=== PATIENT | female | born 1970 | race Caucasian/White ===

== ENCOUNTER 2021-01-01 09:48 | Outpatient (CLI) | payer OTHER, SELFPAY ==
--- NOTE | ~2021-01-01 | MM_ITS ---
EXAMINATION: MM screening bethanie BI w terry HISTORY: Screening mammogram TECHNIQUE: Craniocaudal and mediolateral oblique 3-D tomosynthesis images were obtained and synthetic 2-D images were generated. CAD analysis was submitted and interpreted. COMPARISON: 11/16/2018 bilateral digital screening mammogram 05/27/2017 bilateral diagnostic digital mammogram and limited left breast ultrasound 02/17/2016, 12/26/2014 bilateral digital screening mammogram BREAST PARENCHYMAL COMPOSITION: The breasts are heterogeneously dense, which may obscure small masses FINDINGS: There is a cluster of grouped microcalcifications in the medial subareolar area of the left breast. Diagnostic left mammogram with magnification views is recommended. Otherwise there is no evidence of suspicious mass, calcification, or architectural distortion to sugg est malignancy in either breast. There has been no other suspicious interval change. IMPRESSION: 1. Cluster grouped microcalcifications in the medial subareolar left breast 2. Diagnostic left mammogram with magnification views is recommended BI-RADS Category 0: Incomplete: Needs additional imaging evaluation. Reviewed, dictated and finalized at location A.
== END 2021-01-01 09:49 | disposition home or self-care (01) ==
PROVIDERS: Visit Provider Nurse Practitioner
DX: Z12.31 Encounter for screening mammogram for malignant neoplasm of breast (principal); R92.8 Other abnormal and inconclusive findings on diagnostic imaging of breast
CPT/HCPCS: 77063; 77067

== ENCOUNTER 2021-01-23 07:35 | Observation (INO) | payer OTHER, SELFPAY ==
[2021-01-23] VITALS (8 sets, daily range): BP systolic 106–130; BP diastolic 48–74; PULSE 81–96; RESP 14–20; TEMP 36.8–37.2; O2SAT 97–100; BMI 21.9
--- NOTE | ~2021-01-23 | CT_ITS ---
EXAMINATION: CT abdomen pelvis w con DATE: 01/23/2021 08:26 INDICATION: Right lower quadrant abdominal pain. Right flank pain. TECHNIQUE: Computed tomography (CT) of the abdomen and pelvis was performed with 100 mL Omnipaque 350 intravenous contrast. Automated exposure control and iterative reconstruction technique were employe d. The dose-length product was 248.54 mGy-cm. COMPARISON: None. FINDINGS: The visualized portions of the lung bases demonstrate mild atelectasis. No pleural effusion . The heart size is normal. No pericardial effusion. The liver, gallbladder, spleen, and adrenal glan ds are normal. Pancreas divisum is noted. The kidneys are normal. The appendix is normal. There are n o dilated loops of bowel. There are scattered diverticula in the colon. In the ascending colon, there is wall thickening with 2.2 x 1.3 cm abscess abutting the bowel wall and fat stranding, consistent w ith diverticulitis. No free intraperitoneal gas. There are no pathologically enlarged lymph nodes. Th ere is no free intraperitoneal fluid. There is moderate lower lumbar spondylosis. IMPRESSION: 1. Diverticulitis of ascending colon with 2.2 x 1.3 cm abscess, which is likely too small for drainag e. Reviewed, dictated and finalized at location D. IMPRESSION: 1. Diverticulitis of ascending colon with 2.2 x 1.3 cm abscess, which is likely too small for drainage.
--- NOTE | 2021-01-23 07:44 | ED.ABDPAIN ---
HPI - Abdominal Pain General Chief Complaint: Abdominal Pain Stated Complaint: right flank pain Time Seen by Provider: 01/23/21 07:40 History of Present Illness HPI narrative: RLQ pain since yesterday. No radiation. Moderate at rest. Worse with any movement. Associated with nausea and cold sweats. This is a new symptoms. She had a transvaginal US done yesterday. Additionally says that she has frequent urination, but this is not new. Related Data Home Medications Medication Instructions Recorded Confirmed alprazolam 0.25 mg PO PRN 01/23/21 01/23/21 sertraline 25 mg PO DAILY 01/23/21 01/23/21 Allergies Allergy/AdvReac Type Severity Reaction Status Date / Time Sulfa (Sulfonamide Allergy Unknown HIVES Verified 01/23/21 07:44 Antibiotics) Review of Systems Review of Systems: All systems reviewed & are unremarkable except as noted in HPI and below Constitutional: Constitutional: Reports fatigue Cardiovascular: Cardiovascular: Denies chest pain Respiratory: Respiratory: Denies dyspnea Genitourinary: Genitourinary: Denies hematuria and Denies dysuria Musculoskeletal: Musculoskeletal: Denies back pain Neurologic: Denies dizziness and Denies weakness [facility] Past Medical History Medical History (Updated 01/23/21 @ 10:55 by Alexandro Antunez MD) Anxiety Social History Social History (Updated 01/23/21 @ 08:14 by Alexandro Antunez MD) Smoking status: Never smoker Gender identity (if verbalized by the patient): Female Exam Const: General: healthy appearing, no acute distress and alert Orientation/consciousness: patient oriented x3 HENMT: Head: normal to inspection Neck: Neck: normal visual inspection Resp: Effort & Inspection: normal respiratory effort Auscultation: clear to auscultation bilaterally, no rales, no rhonchi and no wheezes Cardio: Jugular venous distension: no JVD Rate: regular rate Rhythm: regular rhythm Heart sounds: no murmurs GI: Inspection: non-distended GI Palp: Yes Soft to palpation, Yes Tenderness to palpation present (GI) (McBurny's), No Guarding due to palpation present (GI) and No Rebound tenderness present Other: Pain with right hip flexion Skin: General skin exam: normal color Neuro: General: patient oriented x3 and moves all extremities Speech: normal speech Extrem: General: normal to inspection and no edema Psych: Appearance: well kempt Affect: normal affect Course Vital Signs Vital signs: Vital Signs Temperature 36.8 C 01/23/21 07:39 Pulse Rate 94 01/23/21 07:39 Respiratory Rate 20 01/23/21 07:39 Blood Pressure 130/74 01/23/21 07:39 Pulse Oximetry 100 01/23/21 07:39 Temperature 36.8 C 01/23/21 07:39 Pulse Rate 96 01/23/21 09:51 Respiratory Rate 20 01/23/21 09:51 Blood Pressure 114/70 01/23/21 09:51 Pulse Oximetry 100 01/23/21 09:51 MDM - Abdominal Pain MDM Narrative Medical decision making narrative: Ascending diverticulitis and small abscess. Case discussed with Dr. Camarena. He will admit. Differential Diagnosis Differential diagnosis: Likely acute appendicitis, diverticulitis and pancreatitis Medical Records Attestation: I reviewed the patient's medical records. Lab Data Attestation: I reviewed the patient's lab results. Result diagrams: 01/23/21 07:46 01/23/21 07:46 Labs: Lab Results 01/23/21 01/23/21 01/23/21 Range/Units 07:46 07:46 07:56 WBC 19.0 H (4.5-10.0) K/mm3 RBC 4.18 L (4.2-5.4) M/mm3 Hgb 12.9 (12.0-15.0) g/dL Hct 40.9 (37.0-47.0) % MCV 97.8 (80-100) fl MCH 30.9 (26-34) pg MCHC 31.5 L (32-36) g/dl RDW 12.6 (11.5-14.5) % Plt Count 227 (150-375) k/mm3 MPV 9.5 (7.4-10.4) fl Immature Gran % (Auto) 0.6 H (0-0.5) % Neut % (Auto) 82.6 H (45.5-73.1) % Lymph % (Auto) 7.9 L (18.3-44.2) % Carlton % (Auto) 8.3 (2.6-8.5) % Eos % (Auto) 0.3 (0-4.4) % Baso % (Auto) 0.3 (0.2-1.2) % Lymph
[2021-01-23 07:56] LABS: Basophils Absolute Auto 0.1 K/mm3 (0.0-0.1); Basophils Percent Auto 0.3 % (0.2-1.2); Eosinophils Absolute Auto 0.1 K/mm3 (0-0.3); Eosinophils Percent Auto 0.3 % (0-4.4); Hematocrit 40.9 % (37.0-47.0); Hemoglobin 12.9 g/dL (12.0-15.0); Immature Granulocyte Absolute 0.12 K/mm3 (0.00-0.031); Immature Granulocyte Percent A 0.6 % (0-0.5); Lymphocytes Percent Auto 7.9 % (18.3-44.2); Mean Corpuscular HGB Conc 31.5 g/dl (32-36); Mean Corpuscular Hemoglobin 30.9 pg (26-34); Mean Corpuscular Volume 97.8 fl (80-100); Mean Platelet Volume 9.5 fl (7.4-10.4); Monocytes Absolute Auto 1.6 K/mm3 (0.1-0.6); Monocytes Percent Auto 8.3 % (2.6-8.5); Neutrophils Absolute Auto 15.7 K/mm3 (1.3-6.7); Neutrophils Percent Auto 82.6 % (45.5-73.1); Platelet Count Result 227 k/mm3 (150-375); Red Blood Count 4.18 M/mm3 (4.2-5.4); Red Cell Distribution Width 12.6 % (11.5-14.5)
[2021-01-23 08:08] LABS: Add Urine Microscopic? YES; Appearance Urine Clear (Clear); Bacteria Urine Trace /hpf; Bilirubin Urine Negative (Negative); Blood Urine 2+ (Negative); Color Urine Yellow (Yellow); Glucose Urine UA Negative (Negative); Ketones Urine Negative (Negative); Leukocyte Esterase Ur Negative LEU/UL (Negative); Mucus Urine Rare /lpf; Nitrate Urine Negative (Negative); Protein Urine Negative (Negative); Specific Grav Ur 1.017 (1.001-1.035); Squamous Epithelial Cell Urine Rare /hpf (Few); Urobilinogen Urine Negative mg/dL (<2.0)
[2021-01-23 08:12] LABS: Alanine Aminotransferase 23 U/L (4-35); Albumin Level 4.4 g/dL (3.5-5.1); Alkaline Phosphatase 56 U/L (38-126); Anion Gap 9 mmol/L (8-16); Aspartate Amino Transferase 27 U/L (14-36); Bilirubin,Total 0.6 mg/dL (0.2-1.3); Blood Urea Nitrogen 8 mg/dL (7-17); Calcium 9.4 mg/dL (8.4-10.2); Carbon Dioxide 27 mmol/L (22-30); Chloride 102 mmol/L (98-107); Estimated CRCL calculation 81 ml/min; Estimated Glomerular Filt Rate > 60; Glucose 103 mg/dL (65-110); Lipase 187 U/L (23-300); Potassium 3.8 mmol/L (3.4-5.0); Sodium 138 mmol/L (137-145)
[2021-01-23] MEDS: MORPHINE SULFATE (*CRX) 4 MG/ML INJ IV PUSH ×2 (10:22→15:39)
[2021-01-23] MEDS: ONDANSETRON INJ 4 MG/2 ML VIAL IV PUSH ×4 (10:22→22:58)
--- NOTE | 2021-01-23 12:26 | ADMGEN ---
This patient, Coco Wing, was admitted to [facility] Surg Room 324-01. Patient/family oriented to hospital policies and general routines including ID bracelet, bed and alarms, visiting hours, pain management, procedures, bathroom and other care routines, personal items, smoking policy, room service/diet, and visiting hours. Information on how to activate the Rapid Response Team has been discussed. Patient/Family are encouraged to report perceived risks to care and to ask questions if they do not understand what they are told or what they should do.
[2021-01-23] MEDS: SODIUM CHLORIDE 0.9% IV 1,000 ML 125 ML IV CONT (12:30)
--- NOTE | 2021-01-23 13:22 | PCDIET ---
MST 5 for weight loss of and poor po intake. Patient currently NPO. Diverticulitis. Will assess when diet order advances. Following.
--- NOTE | 2021-01-23 17:43 | PM.IMHP ---
H&P: HPI History of Present Illness Date/Time: 01/23/21 17:43 Chief Complaint: Right lower quadrant abdominal pain Narrative: Patient is a 50-year-old woman who yesterday started having abdominal pain primarily in the right lower quadrant. She describes the pain is moderate but worse with activity. She had some nausea but no vomiting. She has also noticed cold sweats. She came to the emergency room today and was noted to have tenderness in the right lower quadrant. [place] [id number]. She was relatively comfortable and not in severe pain. A CT scan of the abdomen pelvis was done and showed evidence of ascending colon diverticulitis with a 2.2 x 1.3 cm abscess. She is admitted now for IV antibiotic therapy and further care. Her main complaint this evening is nausea with right-sided abdominal pain much worse with movement. Review of Systems Review of Systems: All systems reviewed & are unremarkable except as noted in HPI and below Constitutional: Constitutional: Reports chills, Reports excessive sweating (Cold sweats), Denies fever(s) and Denies headache(s) Cardiovascular: Cardiovascular: Denies chest pain and Denies dyspnea Respiratory: Respiratory: Denies cough and Denies dyspnea Gastrointestinal: Gastrointestinal: Reports abdominal pain (Right lower quadrant) and Reports nausea Neurologic: Denies confusion and Denies headache(s) [facility] Past Medical History Medical History Anxiety Surgical History Surgical History (Updated 01/24/21 @ 08:49 by Jay Camarena MD) H/O hysterectomy with unilateral oophorectomy History of section Social History Social History Smoking status: Never smoker Alcohol intake: former Substance use: current Other substance usage details: cbd gummies Last use: 01/22/21 Gender identity (if verbalized by the patient): Female Spiritual care concerns: No Meds Home Medications and Allergies Home Medications Medication Instructions Recorded Confirmed Type alprazolam 0.25 mg PO PRN 01/23/21 01/23/21 History sertraline 25 mg PO DAILY 01/23/21 01/23/21 History Allergies Allergy/AdvReac Type Severity Reaction Status Date / Time Sulfa (Sulfonamide Allergy Severe Difficulty Verified 01/23/21 12:44 Antibiotics) Breathing Vital Signs Vital Signs - 24 hr 01/23/21 07:39 01/23/21 09:00 01/23/21 09:51 Temperature 36.8 C Pulse Rate 94 94 96 Respiratory Rate 20 20 20 Blood Pressure 130/74 119/50 L 114/70 Pulse Oximetry 100 100 100 01/23/21 11:34 01/23/21 12:10 01/23/21 12:45 Temperature 36.9 C Pulse Rate 94 94 81 Respiratory Rate 20 20 14 Blood Pressure 106/64 110/74 110/51 L Pulse Oximetry 100 99 100 01/23/21 14:00 Temperature 37.2 C Pulse Rate 83 Respiratory Rate 16 Blood Pressure 108/49 L Pulse Oximetry 97 Exam Const: General: cooperative, comfortable, no acute distress, alert and awake; No confusion Orientation/consciousness: No confusion HENMT: Head: normocephalic, atraumatic, no contusions and no scalp lesions Ears: external ears normal General nose exam: Normal external nose present Face and sinus: face symmetric and dry mucous membranes Mouth: Yes Normal oral and palatal mucosa present and Yes tongue normal Throat: posterior oropharynx normal Eyes: Conjunctivae: conjunctivae normal Sclera: sclerae normal Pupils: Equal, round and reactive pupils present EOM: EOMs intact bilaterally Neck: Neck: normal visual inspection, no lymphadenopathy, trachea midline, supple, nontender and no JVD Thyroid: abnormal thyroid Resp: Effort & Inspection: normal respiratory effort Auscultation: clear to auscultation bilaterally Cardio: Rate: regular rate Rhythm: regular rhythm GI: Inspection: normal to inspection, non-distended and scaphoid GI Palp: Yes Soft to palpation, Yes Tenderness to pal
[2021-01-23] MEDS: ACETAMINOPHEN 500 MG TABLET 1000 MG PO (18:31)
[2021-01-23] MEDS: FAMOTIDINE 20 MG/2 ML VIAL IV PUSH (21:28)
[2021-01-23] MEDS: ENOXAPARIN 30 MG/0.3 ML SYRINGE SUB-Q (21:39)
[2021-01-23] MEDS: KCL 20 MEQ/D5/0.9% SOD CHL 1,000 ML 100 ML IV CONT (23:00)
[2021-01-24 06:00] VITALS: BP 100/50; PULSE 87; RESP 18; TEMP 37.1; O2SAT 100
[2021-01-24 06:59] LABS: Hematocrit 36.2 % (37.0-47.0); Hemoglobin 11.6 g/dL (12.0-15.0); Mean Corpuscular Volume 96.8 fl (80-100); Mean Platelet Volume 10.2 fl (7.4-10.4); Platelet Count Result 165 k/mm3 (150-375); Red Blood Count 3.74 M/mm3 (4.2-5.4); Red Cell Distribution Width 12.6 % (11.5-14.5); White Blood Count 12.8 K/mm3 (4.5-10.0)
[2021-01-24 07:09] LABS: Anion Gap 8 mmol/L (8-16); Blood Urea Nitrogen 6 mg/dL (7-17); Calcium 8.5 mg/dL (8.4-10.2); Carbon Dioxide 24 mmol/L (22-30); Chloride 101 mmol/L (98-107); Estimated CRCL calculation 95 ml/min; Estimated Glomerular Filt Rate > 60; Glucose 93 mg/dL (65-110); Potassium 3.8 mmol/L (3.4-5.0); Sodium 133 mmol/L (137-145)
[2021-01-24] MEDS: ENOXAPARIN 30 MG/0.3 ML SYRINGE SUB-Q (08:33)
[2021-01-24] MEDS: FAMOTIDINE 20 MG/2 ML VIAL IV PUSH (08:35)
--- NOTE | 2021-01-24 08:50 | PM.PNGS ---
Progress Note: A&P Assessment and Plan (1) Diverticulitis of intestine with abscess: Qualifiers: Diverticulitis bleeding: without bleeding Diverticulitis site: large intestine Qualified Code(s): K57.20 - Diverticulitis of large intestine with perforation and abscess without bleeding Code(s): K57.80 - Diverticulitis of intestine, part unspecified, with perforation and abscess without bleeding Status: Acute Assessment and Plan: made good improvement overnight. Will start full liquids. Advance as tolerated to low-fiber diet. Recheck labs again tomorrow as well as exam. Possibly home tomorrow if continues to improve. Subjective Subjective Date/Time Seen: 01/24/21 08:50 Patient reports: feels better, pain is less and afebrile Interval history: Nausea and pain much better. Now very hungry. Exam Const: General: comfortable and no acute distress; No confusion Orientation/consciousness: patient oriented x3 and No confusion GI: Inspection: non-distended and scaphoid GI Palp: Yes Soft to palpation, Yes Tenderness to palpation present (GI) ( Less tender right lower quadrant), No Guarding due to palpation present (GI) and No Rebound tenderness present Auscultation: normal bowel sounds Neuro: General: patient oriented x3, no focal motor deficits and No confusion Extrem: General: no calf tenderness and no edema Psych: Affect: normal affect Insight: Good insight present (Psych) Judgement: Good judgement present (Psych) Objective Data Vital Signs Vital Signs: Vital Signs - 24 hr 01/23/21 09:00 01/23/21 09:51 01/23/21 11:34 Temperature Pulse Rate 94 96 94 Respiratory Rate 20 20 20 Blood Pressure 119/50 L 114/70 106/64 Pulse Oximetry 100 100 100 01/23/21 12:10 01/23/21 12:45 01/23/21 14:00 Temperature 36.9 C 37.2 C Pulse Rate 94 81 83 Respiratory Rate 20 14 16 Blood Pressure 110/74 110/51 L 108/49 L Pulse Oximetry 99 100 97 01/23/21 21:59 01/24/21 06:00 Temperature 37.2 C 37.1 C Pulse Rate 83 87 Respiratory Rate 18 18 Blood Pressure 108/48 L 100/50 L Pulse Oximetry 98 100 Intake/Output Intake/Output: Intake & Output 08/18/21 01/22/21 01/23/21 01/24/21 23:59 23:59 23:59 23:59 Intake Total 1250 170 Balance 1250 170 Meds/Results Medications: Active Medications Generic Name Dose Route Start Last Admin Trade Name Freq PRN Reason Stop Dose Admin Acetaminophen 1,000 mg 01/23/21 18:20 01/23/21 18:31 Acetaminophen 500 Mg Tablet PO 1,000 mg Q6H PRN Administration Mild Pain (1-3) or Headache Acetaminophen 500 mg 01/24/21 08:44 Acetaminophen 500 Mg Tablet PO Q6H PRN Mild Pain (1-3) or Fever Hydrocodone Bitart/Acetaminophen 1 tab 01/24/21 08:44 Hydrocodone/Acetaminophen (*Crx) 5-325 Mg Tablet PO Q4H PRN Pain Rated 4-6 Hydrocodone Bitart/Acetaminophen 1 tab 01/24/21 08:44 Hydrocodone/Acetaminophen (*Crx) 7.5-325 Mg Tablet PO Q4H PRN Pain Rated 7-10 Alprazolam 0.25 mg 01/23/21 17:41 Alprazolam (*Crx) 0.25 Mg Tablet PO Q6H PRN Anxiety Enoxaparin Sodium 40 mg 01/24/21 09:00 Enoxaparin 40 Mg/0.4 Ml Syringe SUB-Q DAILY DIANNA Famotidine 20 mg 01/24/21 09:00 Famotidine 20 Mg Tablet PO Q12HR DIANNA Piperacillin/Tazobactam/Dextrose 3.375 gm in 50 mls @ 100 mls/hr 01/23/21 15:00 01/24/21 08:35 Zosyn 3.375 Gm/D5w 50ml Pm IVPB 100 mls/hr Q6H DIANNA Administration Potassium Chloride/Dextrose/Sod Cl 1,000 mls @ 60 mls/hr 01/23/21 17:40 01/23/21 23:00 Kcl 20 Meq/D5/0.9% Sod Chl IV CONT 100 mls/hr .[id number] DIANNA Administration Morphine Sulfate 1 mg 01/24/21 08:44 Morphine Sulfate (*Crx) 2 Mg/Ml Inj IV PUSH Q2H PRN Pain Rated 4-6 Morphine Sulfate 2 mg 01/24/21 08:44 Morphine Sulfate (*Crx) 4 Mg/Ml Inj IV PUSH Q2H PRN Pain Rated 7-10 Ondansetron HCl 4 mg 01/23/21 10:08 01/23/21 22:58 Ondansetron Inj 4 Mg/2 Ml Vial IV
[2021-01-24] MEDS: ENOXAPARIN 40 MG/0.4 ML SYRINGE SUB-Q (09:30)
[2021-01-24] MEDS: FAMOTIDINE 20 MG TABLET PO ×2 (09:31→20:33)
[2021-01-24] MEDS: SERTRALINE HCL 25 MG TABLET PO (09:59)
[2021-01-24] MEDS: ACETAMINOPHEN 500 MG TABLET PO (10:01)
[2021-01-24 14:00] VITALS: BP 111/49; PULSE 84; RESP 16; TEMP 37.1; O2SAT 100
[2021-01-24 17:59] VITALS: O2SAT 98
[2021-01-24 22:00] VITALS: BP 102/40; PULSE 82; RESP 18; TEMP 37.3; O2SAT 99
[2021-01-25 06:00] VITALS: BP 108/66; PULSE 73; RESP 18; TEMP 36.7; O2SAT 100
[2021-01-25 07:00] LABS: Hematocrit 33.7 % (37.0-47.0); Mean Corpuscular HGB Conc 32.6 g/dl (32-36); Mean Corpuscular Hemoglobin 30.6 pg (26-34); Mean Corpuscular Volume 93.9 fl (80-100); Mean Platelet Volume 9.8 fl (7.4-10.4); Platelet Count Result 225 k/mm3 (150-375); Red Blood Count 3.59 M/mm3 (4.2-5.4); Red Cell Distribution Width 12.4 % (11.5-14.5); White Blood Count 7.8 K/mm3 (4.5-10.0)
[2021-01-25 07:13] LABS: Anion Gap 6 mmol/L (8-16); Blood Urea Nitrogen 5 mg/dL (7-17); Calcium 8.8 mg/dL (8.4-10.2); Carbon Dioxide 27 mmol/L (22-30); Chloride 99 mmol/L (98-107); Estimated CRCL calculation 81 ml/min; Estimated Glomerular Filt Rate > 60; Glucose 77 mg/dL (65-110); Potassium 3.4 mmol/L (3.4-5.0); Sodium 132 mmol/L (137-145)
[2021-01-25] MEDS: SERTRALINE HCL 25 MG TABLET PO (09:05)
[2021-01-25] MEDS: FAMOTIDINE 20 MG TABLET PO (09:05)
[2021-01-25] MEDS: ENOXAPARIN 40 MG/0.4 ML SYRINGE SUB-Q (09:05)
--- NOTE | 2021-01-25 10:39 | PM.DS ---
DS: Admitting Diagnosis Admitting Diagnosis Diverticulitis with abscess DS: Discharge Diagnosis Discharge Diagnosis (1) Diverticulitis of intestine with abscess: Qualifiers: Diverticulitis bleeding: without bleeding Diverticulitis site: large intestine Qualified Code(s): K57.20 - Diverticulitis of large intestine with perforation and abscess without bleeding Code(s): K57.80 - Diverticulitis of intestine, part unspecified, with perforation and abscess without bleeding Status: Acute DS: Summary Hospital Course Hospital Course: patient is a 50-year-old woman who on 01/22 started experiencing right lower quadrant abdominal pain. The pain was moderate and worse with activity. She also had a lot of nausea and some cold sweats. On 01/23 she came to the emergency room. She was noted to have tenderness in the right lower quadrant. [place] [id number]. Her pain was relatively mild. CT scan of the abdomen pelvis showed evidence of ascending colon diverticulitis with a 2.2 x 1.3 cm abscess. Later in the admission, patient gave a history of eating large amount of peanuts prior to her onset of symptoms. She was admitted and started on bowel rest and IV Zosyn antibiotics. Her pain improved significantly just overnight. She was able to be started on liquids and slowly advance to a low-fiber diet. Her nausea resolved as well. She was much improved on 01/25 and was able to be discharged on a low-fiber diet and oral antibiotics. Time Spent with Patient Time attestation: Total time spent providing and/or coordinating discharge services: Exam GI: Inspection: non-distended GI Palp: Yes Soft to palpation and No Tenderness to palpation present (GI) Auscultation: normal bowel sounds DS: Data Data Completed and Pending Labs on day of discharge: Labs from last 24 hours 01/25/21 01/25/21 06:19 06:19 WBC 7.8 RBC 3.59 L Hgb 11.0 L Hct 33.7 L MCV 93.9 MCH 30.6 MCHC 32.6 RDW 12.4 Plt Count 225 MPV 9.8 Sodium 132 L Potassium 3.4 Chloride 99 Carbon Dioxide 27 Anion Gap 6 L BUN 5 L Creatinine 0.60 L Estim Creat Clear Calc 81 Estimated GFR > 60 Glucose 77 Calcium 8.8 Discharge Plan Discharge Attending physician on discharge: Jay Toro Discharging Clinician: Jay Toro Anticipated Discharge Date/Time: 01/25/21 10:44 Patient Disposition: Home, Self-Care Activity: may shower and as tolerated Diet: low fiber Discharge Instructions: Low-fiber diet follow-up with Dr. toro in 2 weeks call or go to the emergency room if pain returns Patient Instructions: Antibiotic Form, Diverticulitis (GEN), Pain Management (GEN) Stand Alone Forms: General Discharge Information Follow-up/Referrals: Jay Toro MD [Physician] - 2 Weeks ( call Dr. madden office to make appointment) Discharge Medications: New ciprofloxacin HCl 500 mg tablet 500 mg PO Q12H Qty: 10 RF: 0 metronidazole 500 mg tablet 500 mg PO TID Qty: 14 RF: 0 Continued alprazolam 0.25 mg tablet 0.25 mg PO PRN RF: 0 sertraline 25 mg tablet 25 mg PO DAILY RF: 0 Date of admission: 01/23/21 10:08 Primary Care Provider: Maximus,David Kelly Admitting Provider: Jay Toro Attending physician on admission: Jay Toro Condition: Improved
== END 2021-01-25 12:00 | disposition home or self-care (01) ==
LOC: ANHED 10:55 → ANH3MEDSUR 11:56
PROVIDERS: Admitting Provider Surgery; Emergency Provider Emergency Medicine; Visit Provider Surgery
DX: K57.20 Diverticulitis of large intestine with perforation and abscess without bleeding (principal); R10.31 Right lower quadrant pain; R11.0 Nausea
CPT/HCPCS: 36415; 74177; 80048; 80053; 81001; 83690; 85025; 85027; 96361; 96365; 96366; 96367; 96372; 96375; 96376; 99285; A9270; G0378; J0131; J1650; J2270; J2405; J2543; J3480; J7030; Q9967

== ENCOUNTER 2021-01-28 11:30 | Outpatient (CLI) | payer OTHER, SELFPAY ==
--- NOTE | ~2021-01-28 | MM_ITS ---
EXAMINATION: MM diagnostic mammo unilat LT HISTORY: Indeterminate left breast calcifications on screening mammogram TECHNIQUE: Magnification views of the left breast were performed. CAD analysis was submitted and inte rpreted. COMPARISON: 01/01/2021, 11/16/2018,05/27/2017, 02/17/2016 FINDINGS: There are grouped calcifications in the anterior third of the slightly inner breast at the 9:00 location 3 cm from the nipple. Calcifications appear to be predominantly round in morphology wit hout significant change compared to prior mammograms although magnification views have not been previ ously performed. IMPRESSION: 1. Probably benign left breast calcifications. 2. Recommend 6 month follow-up left diagnostic mammogram. BI-RADS category 3, probably benign findings. Reviewed, dictated and finalized at location A.
== END 2021-01-28 11:31 | disposition home or self-care (01) ==
PROVIDERS: Visit Provider Nurse Practitioner
DX: Z12.31 Encounter for screening mammogram for malignant neoplasm of breast (principal); R92.8 Other abnormal and inconclusive findings on diagnostic imaging of breast
CPT/HCPCS: 77065

== ENCOUNTER 2021-02-08 13:50 | Emergency (ER) | payer OTHER, SELFPAY ==
--- NOTE | ~2021-02-08 | CT_ITS ---
EXAMINATION: CT abdomen pelvis w con DATE: 02/08/2021 14:52 INDICATION: Low abdominal pain. TECHNIQUE: Computed tomography (CT) of the abdomen and pelvis was performed with 100 mL Omnipaque 350 intravenous contrast. Automated exposure control and iterative reconstruction technique were employe d. The dose-length product was 243.33 mGy-cm. COMPARISON: CT abdomen and pelvis 01/23/2021 FINDINGS: The visualized portions of the lung bases are clear without pneumonia or pleural effusion. The heart size is normal. No pericardial effusion. The liver, gallbladder, spleen, pancreas, adrenal glands, and kidneys are normal. There are scattered diverticula in the colon. There is fat stranding around a diverticulum of ascending colon, consistent with diverticulitis. There is a large volume of stool in colon. The appendix is normal. There are no pathologically enlarged lymph nodes. There is no free intraperitoneal fluid. There is severe lower lumbar spondylosis. IMPRESSION: 1. Acute diverticulitis of ascending colon with improvement from 01/23/2021. No perforation or abscess . Reviewed, dictated and finalized at location A. IMPRESSION: 1. Acute diverticulitis of ascending colon with improvement from 01/23/2021. No perforation or abscess.
[2021-02-08 13:52] VITALS: BP 130/60; PULSE 84; RESP 18; TEMP 37.5; O2SAT 100
[2021-02-08 14:15] LABS: Basophils Absolute Auto 0.1 K/mm3 (0.0-0.1); Basophils Percent Auto 0.9 % (0.2-1.2); Eosinophils Absolute Auto 0.1 K/mm3 (0-0.3); Eosinophils Percent Auto 1.7 % (0-4.4); Hemoglobin 12.7 g/dL (12.0-15.0); Immature Granulocyte Absolute 0.05 K/mm3 (0.00-0.031); Immature Granulocyte Percent A 0.6 % (0-0.5); Lymphocytes Absolute Auto 1.77 K/mm3 (0.9-3.2); Mean Corpuscular HGB Conc 32.6 g/dl (32-36); Mean Corpuscular Hemoglobin 31.6 pg (26-34); Monocytes Absolute Auto 0.7 K/mm3 (0.1-0.6); Monocytes Percent Auto 8.7 % (2.6-8.5); Neutrophils Percent Auto 65.1 % (45.5-73.1); Platelet Count Result 355 k/mm3 (150-375); Red Blood Count 4.02 M/mm3 (4.2-5.4); Red Cell Distribution Width 12.8 % (11.5-14.5); White Blood Count 7.7 K/mm3 (4.5-10.0)
--- NOTE | 2021-02-08 14:23 | ED.ABDPAIN ---
HPI - Abdominal Pain General Chief Complaint: Abdominal Pain Stated Complaint: fever, diverticulitis Time Seen by Provider: 02/08/21 14:05 Source: patient and RN notes reviewed Mode of arrival: ambulatory Limitations: no limitations History of Present Illness HPI narrative: This is 50 year old female with recent diagnosis of Diverticulitis who presents for evaluation of lower abdominal pain. She was diagnosed with diverticulitis with an abscess on 01/23/21, and she was admitted to hospital for 2-3 days with IV antibiotics. She completed her antibiotics and she follow up with Dr. Camarena on . She reports her pain is not as severe as when she was first diagnosed, but she has continued to have pain. Since she was still having pain she was started on Cipro and Flagyl again on . She has been monitoring her temperature since and she has been running low grade fever. Prior to arrival today her temperature was 100.4 F. she has also noticed increased urinary urgency and frequency last night but it resolved today. She denies nausea, vomiting. Related Data Home Medications Medication Instructions Recorded Confirmed alprazolam 0.25 mg PO PRN 01/23/21 01/23/21 sertraline 25 mg PO DAILY 01/23/21 01/23/21 Allergies Allergy/AdvReac Type Severity Reaction Status Date / Time Sulfa (Sulfonamide Allergy Severe Difficulty Verified 02/08/21 14:16 Antibiotics) Breathing Review of Systems Review of Systems: All systems reviewed & are unremarkable except as noted in HPI and below PMFSH Past Medical History Medical History (Updated 02/09/21 @ 00:00 by Jez Logan) Anxiety Diverticulitis of intestine with abscess Surgical History Surgical History (Updated 01/24/21 @ 08:49 by Jay Camarena MD) H/O hysterectomy with unilateral oophorectomy History of section Social History Social History Smoking status: Never smoker Alcohol intake: former Substance use: current Other substance usage details: cbd gummies Last use: 01/22/21 Gender identity (if verbalized by the patient): Female Spiritual care concerns: No Exam Const: General: no acute distress and alert Orientation/consciousness: patient oriented x3 Eyes: EOM: EOMs intact bilaterally Chest: Chest palpation & inspection: normal inspection of the chest Resp: Effort & Inspection: normal respiratory effort and no retractions Auscultation: clear to auscultation bilaterally Cardio: Rate: regular rate Rhythm: regular rhythm Heart sounds: no murmurs GI: GI Palp: Yes Soft to palpation, Yes Tenderness to palpation present (GI) (bilateral lower quadrant) and No Guarding due to palpation present (GI) Auscultation: normal bowel sounds Back/Spine/Pelvis: Back: no CVA tenderness Skin: General skin exam: normal color Rashes: no rashes Neuro: General: patient oriented x3, moves all extremities and CN's II-XI intact bilaterally Course Reevaluation(s) Reevaluation #1: I Spoke with patient about CT and plan to discharge. She will go to clear liquid diet for a couple days and continue antibiotics. She has an appointment with Dr. Camarena on so we will continue antibiotics until then. CT shows resolution of her previously seen abscess. Date: 02/08/21 Time: 15:49 Consultations Consultation #1: I Discussed case and labs with Dr. Yuen who is educational interpreter for Dr. Camarena. He agrees patient can be discharged to continue antibiotics. She should return for increasing pain. Date: 02/08/21 Time: 15:49 Vital Signs Vital signs: Vital Signs Temperature 99.5 F 02/08/21 13:52 Pulse Rate 84 02/08/21 13:52 Respiratory Rate 18 02/08/21 13:52 Blood Pressure 130/60 02/08/21 13:52 Pulse Oximetry 100 02/08/21 13:52 Temperature 99.5 F 02/08/21 13:52 Pulse Rate 78 02/08/21 16:02 Respiratory Rate 18 02/08/21 16:02 Blood Pressure 107/73 02/08/21 16:
[2021-02-08 14:25] LABS: Add Urine Microscopic? NO; Appearance Urine Clear (Clear); Bilirubin Urine Negative (Negative); Blood Urine Negative (Negative); Color Urine Colorless (Yellow); Glucose Urine UA Negative (Negative); Ketones Urine Negative (Negative); Leukocyte Esterase Ur Negative LEU/UL (Negative); Nitrate Urine Negative (Negative); Protein Urine Negative (Negative); Urobilinogen Urine Negative mg/dL (<2.0)
[2021-02-08 14:27] LABS: Alanine Aminotransferase 64 U/L (4-35); Albumin Level 4.7 g/dL (3.5-5.1); Alkaline Phosphatase 42 U/L (38-126); Anion Gap 7 mmol/L (8-16); Aspartate Amino Transferase 30 U/L (14-36); Bilirubin,Total 0.5 mg/dL (0.2-1.3); Blood Urea Nitrogen 12 mg/dL (7-17); Calcium 9.6 mg/dL (8.4-10.2); Carbon Dioxide 27 mmol/L (22-30); Chloride 102 mmol/L (98-107); Estimated CRCL calculation 70 ml/min; Estimated Glomerular Filt Rate > 60; Glucose 129 mg/dL (65-110); Lipase 379 U/L (23-300); Potassium 3.7 mmol/L (3.4-5.0); Sodium 136 mmol/L (137-145)
[2021-02-08 14:28] LABS: Specific Grav Ur 1.004 (1.001-1.035)
[2021-02-08 16:02] VITALS: BP 107/73; PULSE 78; RESP 18; O2SAT 100
== END 2021-02-08 16:03 | disposition home or self-care (01) ==
PROVIDERS: Emergency Medicine; Emergency Provider General Practice
DX: K57.32 Diverticulitis of large intestine without perforation or abscess without bleeding (principal); F41.9 Anxiety disorder, unspecified
CPT/HCPCS: 36415; 74177; 80053; 81003; 81025; 83690; 85025; 99284; Q9967

== ENCOUNTER → 2021-05-04 10:02 | Outpatient (CLI) | payer OTHER, SELFPAY ==
[2021-05-04 20:05] LABS: SARS-CoV-2 RNA PCR Negative
== END ==
PROVIDERS: PCP Nurse Practitioner; Visit Provider Internal Medicine Gastroenterology
DX: Z01.812 Encounter for preprocedural laboratory examination (principal); Z20.822 Contact with and (suspected) exposure to COVID-19
CPT/HCPCS: C9803; U0003; U0005

== ENCOUNTER 2021-05-06 01:14 | Day surgery (SDC) | payer OTHER, SELFPAY ==
[2021-04-27 08:41] VITALS: BMI 23.4
--- NOTE | 2021-05-05 13:17 | P.PNAN_ITS ---
Anes - Initial Pre Proc Eval Procedure: Operation Date: 05/06/21 07:30 Proposed Procedures p Esophagogastroduodenoscopy & Colonoscopy - Rigo Vines MD Date/Time: 05/05/21 13:17 Surgeon: Rigo Vines MD Pre Op Diagnosis: diverticulitis, epigastric pain Patient Data Age: 51 Gender: F Height: 1.6 m Weight: 60 kg Allergies Allergy/AdvReac Type Severity Reaction Status Date / Time Sulfa (Sulfonamide Allergy Severe Difficulty Verified 05/06/21 06:31 Antibiotics) Breathing Home Medications Medication Instructions Recorded Confirmed Type alprazolam 0.25 mg PO PRN PRN 01/23/21 04/27/21 History sertraline 25 mg PO DAILY 01/23/21 04/27/21 History Patient hx anesthesia problems: none Family hx anesthesia problems: none Results Review: All pre-operative results and documents have been reviewed as part of the pre-operative evaluation. [facility] Past Medical History Medical History Anxiety Diverticulitis of intestine with abscess Surgical History Surgical History H/O hysterectomy with unilateral oophorectomy History of section Social History Social History Smoking status: Former smoker Alcohol intake: former Substance use: current Other substance usage details: cbd gummies Last use: 01/22/21 Living arrangements: with family Gender identity (if verbalized by the patient): Female Spiritual care concerns: No Anes - Eval Final PreProcedure Day of Procedure 05/05/21 13:17 Patient weight: normal Heart: regular rate and rhythm Lungs: clear to auscultation and normal air movement Airway: Mallampati scale class III Neurological: alert and oriented Last oral intake: >/= 8 hours ASA classification: II Emergent: no Anesthetic plan: proceed Anesthesia type and monitoring: general GIVS and standard monitoring Results Review: All pre-operative results and documents have been reviewed as part of the pre-operative evaluation. Informed Consent: The patient's anesthetic plan and its attendant risks and benefits were discussed with the patient/family/POA. Questions were solicited and answers provided to the satisfaction of the patient/family/POA.
--- NOTE | 2021-05-05 15:11 | PM.HPGS ---
History of Present Illness History of Present Illness Consent: Risks, benefits, and alternatives have been discussed and questions answered. Patient agrees to proceed with procedure. Chief complaint: diverticulitis, epigastric pain Narrative: Coco Wing is a 51 year old female The had acute pancreatitis a few months ago. It actually required 3 courses of antibiotics for her to get over it. She has seen Dr. toro, surgery who felt that surgery is not necessary at this time. He is undergoing colonoscopy to rule out other any other pathology. Review of Systems Review of Systems: All systems reviewed & are unremarkable except as noted in HPI and below PMFSH Past Medical History Medical History Anxiety Diverticulitis of intestine with abscess Surgical History Surgical History H/O hysterectomy with unilateral oophorectomy History of section Social History Social History Smoking status: Former smoker Alcohol intake: former Substance use: current Other substance usage details: cbd gummies Last use: 01/22/21 Living arrangements: with family Gender identity (if verbalized by the patient): Female Spiritual care concerns: No Meds Home Medications and Allergies Home Medications Medication Instructions Recorded Confirmed Type alprazolam 0.25 mg PO PRN PRN 01/23/21 04/27/21 History sertraline 25 mg PO DAILY 01/23/21 04/27/21 History Allergies Allergy/AdvReac Type Severity Reaction Status Date / Time Sulfa (Sulfonamide Allergy Severe Difficulty Verified 05/06/21 06:31 Antibiotics) Breathing Exam Resp: Auscultation: clear to auscultation bilaterally Cardio: Rate: regular rate Rhythm: regular rhythm GI: GI Palp: Yes Soft to palpation and No Tenderness to palpation present (GI) Assessment and Plan Assessment and plan (1) Diverticulitis large intestine w/o perforation or abscess w/o bleeding: Code(s): K57.32 - Diverticulitis of large intestine without perforation or abscess without bleeding Status: Acute Assessment and Plan: Colonoscopy with possible biopsy or polypectomy or cautery or injection of substances.
[2021-05-06 06:32] VITALS: BP 117/70; PULSE 75; RESP 20; TEMP 36.6; O2SAT 100; BMI 22.4
[2021-05-06] MEDS: LACTATED RINGERS 1,000 ML 150 ML IV CONT (06:39)
--- NOTE | 2021-05-06 07:22 | WPDGICN ---
Assessment and Plan Assessment and plan (1) Diverticulitis large intestine w/o perforation or abscess w/o bleeding: Code(s): K57.32 - Diverticulitis of large intestine without perforation or abscess without bleeding Status: Acute Assessment and Plan: Colonoscopy with possible biopsy or polypectomy or cautery or injection of substances. (2) Epigastric pain: Code(s): R10.13 - Epigastric pain Status: Acute Assessment and Plan: EGD with possible biopsy or dilatation or cautery. (3) Pancreatitis: Code(s): K85.90 - Acute pancreatitis without necrosis or infection, unspecified Status: Acute Assessment and Plan: I told her that we will probably need to investigate this further with outpatient studies. I will try to obtain the results of the CT scan that was done at [facility]. GI Consult Note Consult date/time: 05/06/21 07:22 HPI: Coco Wing is a 51 year old female. She had acute Diverticulitis a few months ago. It actually required 3 courses of antibiotics for her to get over it. She has seen Dr. toro, surgery who felt that surgery is not necessary at this time. He is undergoing colonoscopy to rule out other any other pathology. she is finally feeling better. Even before her diverticulitis began, in January, she had been feeling bad for the previous 6 months with indigestion, weight loss of 30 lb, and a change in bowel habits. over the weekend she was having abdominal pain went to an emergency room where she was told she had pancreatitis she had not been drinking alcohol and does not drink frequently. She thinks that they did a CT scan but did not tell her anything about having gallbladder problems. Review of Systems Review of Systems: All systems reviewed & are unremarkable except as noted in HPI and below [facility] Past Medical History Medical History Anxiety Diverticulitis of intestine with abscess Surgical History Surgical History H/O hysterectomy with unilateral oophorectomy History of section Social History Social History Smoking status: Former smoker Alcohol intake: former Substance use: current Other substance usage details: cbd gummies Last use: 01/22/21 Living arrangements: with family Gender identity (if verbalized by the patient): Female Spiritual care concerns: No Meds Home Medications and Allergies Home Medications Medication Instructions Recorded Confirmed Type alprazolam 0.25 mg PO PRN PRN 01/23/21 04/27/21 History sertraline 25 mg PO DAILY 01/23/21 04/27/21 History Allergies Allergy/AdvReac Type Severity Reaction Status Date / Time Sulfa (Sulfonamide Allergy Severe Difficulty Verified 05/06/21 06:31 Antibiotics) Breathing Vital Signs Vital Signs - 24 hr 05/06/21 06:32 Temperature 36.6 C Pulse Rate 75 Respiratory Rate 20 Blood Pressure 117/70 Pulse Oximetry 100 Exam Const: General: alert Orientation/consciousness: patient oriented x3 Resp: Auscultation: clear to auscultation bilaterally Cardio: Rhythm: regular rhythm GI: Inspection: normal to inspection GI Palp: Yes Soft to palpation, No Tenderness to palpation present (GI) and Yes No hepatosplenomegaly present Neuro: General: patient oriented x3
[2021-05-06] MEDS: BENZOCAINE (*SP) 60 ML SPRAY CAN (HURRICAINE) 1 SPRAY MUCOUS MEM (07:28)
--- NOTE | 2021-05-06 07:51 | SUR.OPER ---
EGD started at 0730 and ended at 0734. Colonoscopy started at 0741 and ended at 0750.
[2021-05-06 07:53] VITALS: BP 121/73; PULSE 65; RESP 24; O2SAT 100
[2021-05-06 08:03] VITALS: BP 112/75; PULSE 67; RESP 22; O2SAT 100
[2021-05-06 08:13] VITALS: BP 129/81; PULSE 66; RESP 13; O2SAT 100
== END 2021-05-06 08:27 | disposition home or self-care (01) ==
PROVIDERS: PCP Nurse Practitioner; Visit Provider Internal Medicine Gastroenterology
PROC: 0DJ08ZZ Inspection of Upper Intestinal Tract, Via Natural or Artificial Opening Endoscopic (ICD-10-PCS; CPT 43235; principal; 2021-05-06 07:30)
DX: Z09 Encounter for follow-up examination after completed treatment for conditions other than malignant neoplasm (principal); K57.30 Diverticulosis of large intestine without perforation or abscess without bleeding; K63.5 Polyp of colon; Z87.19 Personal history of other diseases of the digestive system; F41.9 Anxiety disorder, unspecified; Z87.891 Personal history of nicotine dependence; F12.90 Cannabis use, unspecified, uncomplicated
CPT/HCPCS: 45380; 87081; 88305; J2704; J7120

== ENCOUNTER 2022-07-06 07:47 | Emergency (ER) | payer OTHER, SELFPAY ==
[2022-07-06 07:54] VITALS: BP 128/75; PULSE 81; RESP 18; TEMP 36.8; O2SAT 100
[2022-07-06 07:55] VITALS: O2SAT 100
[2022-07-06 08:08] VITALS: O2SAT 100
[2022-07-06 08:14] LABS: Basophils Percent Auto 0.4 % (0.2-1.2); Eosinophils Absolute Auto 0.1 K/mm3 (0-0.3); Eosinophils Percent Auto 0.8 % (0-4.4); Hematocrit 39.1 % (37.0-47.0); Hemoglobin 12.6 g/dL (12.0-15.0); Immature Granulocyte Absolute 0.03 K/mm3 (0.00-0.031); Immature Granulocyte Percent A 0.3 % (0-0.5); Lymphocytes Absolute Auto 1.37 K/mm3 (0.9-3.2); Lymphocytes Percent Auto 14.1 % (18.3-44.2); Mean Corpuscular HGB Conc 32.2 g/dl (32-36); Mean Corpuscular Hemoglobin 31.1 pg (26-34); Mean Corpuscular Volume 96.5 fl (80-100); Mean Platelet Volume 9.5 fl (7.4-10.4); Monocytes Absolute Auto 0.8 K/mm3 (0.1-0.6); Monocytes Percent Auto 8.4 % (2.6-8.5); Neutrophils Absolute Auto 7.4 K/mm3 (1.3-6.7); Platelet Count Result 242 k/mm3 (150-375); Red Blood Count 4.05 M/mm3 (4.2-5.4); Red Cell Distribution Width 13.1 % (11.5-14.5); White Blood Count 9.8 K/mm3 (4.5-10.0)
[2022-07-06 09:45] LABS: Appearance Urine Clear (Clear); Bilirubin Urine Negative (Negative); Blood Urine Negative (Negative); Color Urine Yellow (Yellow); Glucose Urine UA Negative (Negative); Ketones Urine Negative (Negative); Leukocyte Esterase Ur Negative LEU/UL (Negative); Nitrate Urine Negative (Negative); Protein Urine Negative (Negative); Specific Grav Ur <= 1.005 (1.001-1.035); Urobilinogen Urine 0.2 mg/dL (<2.0)
[2022-07-06 09:51] LABS: Add Urine Microscopic? NO
--- NOTE | 2022-07-06 09:52 | ED.ABDPAIN ---
HPI - Abdominal Pain General Chief Complaint: Abdominal Pain Stated Complaint: abd pain Time Seen by Provider: 07/06/22 07:49 History of Present Illness HPI narrative: Patient is a 52-year-old female who presents ER with left-sided abdominal pain. Ongoing for last couple days. Reports 2 weeks ago she had abdominal pain on the right side that lasted a week. She was seen by her GI doctor who was planning to do an outpatient CT scan but then her pain went away. Patient has history of diverticulitis. She denies diarrhea but has stools that are not firm and she does not know how she would describe them. No fevers or chills or sweats. No urinary frequency urgency or dysuria. She is found no alleviating factors. Patient's symptoms are aggravated by palpation of her abdomen. Patient has known history of diverticulitis. Related Data Home Medications Medication Instructions Recorded Confirmed citalopram 10 mg tablet 10 mg PO DAILY 06/22/22 06/22/22 Allergies Allergy/AdvReac Type Severity Reaction Status Date / Time Sulfa (Sulfonamide Allergy Severe Difficulty Verified 07/06/22 07:57 Antibiotics) Breathing Review of Systems Review of Systems: All systems reviewed & are unremarkable except as noted in HPI and below Constitutional: Constitutional: Denies chills, Denies fatigue and Denies fever(s) Gastrointestinal: Gastrointestinal: Reports abdominal pain, Denies constipation, Denies diarrhea, Denies nausea and Denies vomiting Genitourinary: Genitourinary: Denies nocturia, Denies dysuria and Denies flank pain PMFSH Past Medical History Medical History (Updated 07/06/22 @ 10:17 by Giuseppe Jorge MD) Abdominal pain Anxiety Change in bowel habits Diverticulitis of intestine with abscess Nausea Surgical History Surgical History H/O hysterectomy with unilateral oophorectomy History of section Social History Social History Smoking status: Former smoker Alcohol intake: former Substance use: current Other substance usage details: cbd gummies Last use: 01/22/21 Living arrangements: with family Gender identity (if verbalized by the patient): Female Spiritual care concerns: No Exam Narrative: GENERAL: Well-appearing, well-nourished, and in no acute distress. HEAD: Normocephalic, atraumatic. ENT: Mucous membranes moist. CHEST: Clear to auscultation. No respiratory distress. HEART: Regular rate and rhythm. Normal peripheral pulses. ABDOMEN: Soft, mild left-sided abdominal tenderness without guarding or rebound, nondistended. EXTREMITIES: Normal range of motion. No edema. SKIN: Warm, dry, no rash. NEURO: Alert and oriented x3. PSYCH: Normal mood and affect. Course Course Emergency Course: Patient has normal lab work with a benign exam. No rebound or guarding. Patient likely has uncomplicated diverticulitis and it seems appropriate to start her on outpatient antibiotics and not perform advanced imaging. Patient aware of treatment plan and we have had shared decision-making. She is comfortable with discharge and antibiotics. Vital Signs Vital signs: Vital Signs Temperature 98.3 F 07/06/22 07:54 Pulse Rate 81 07/06/22 07:54 Respiratory Rate 18 07/06/22 07:54 Blood Pressure 128/75 07/06/22 07:54 Pulse Oximetry 100 07/06/22 07:54 Oxygen Delivery Room Air 07/06/22 07:54 Temperature 98.3 F 07/06/22 07:54 Pulse Rate 81 07/06/22 07:54 Respiratory Rate 18 07/06/22 07:54 Blood Pressure 128/75 07/06/22 07:54 Pulse Oximetry 100 07/06/22 07:54 Oxygen Delivery Room Air 07/06/22 07:54 MDM - Abdominal Pain Lab Data 07/06/22 08:09 07/06/22 08:09 Labs: Lab Results 07/06/22 07/06/22 07/06/22 Range/Units 08:09 09:21 09:21 WBC 9.8 (4.5-10.0) K/mm3 RBC 4.05 L (4.2-5.4) M/mm3 Hgb 12.6 (12.0-15
[2022-07-06 09:56] LABS: Alanine Aminotransferase 15 U/L (6-35); Alkaline Phosphatase 39 U/L (38-126); Anion Gap 4 mmol/L (8-16); Aspartate Amino Transferase 17 U/L (14-36); Bilirubin,Total 0.6 mg/dL (0.2-1.3); Blood Urea Nitrogen 4 mg/dL (7-17); Calcium 8.6 mg/dL (8.4-10.2); Carbon Dioxide 29 mmol/L (22-30); Chloride 106 mmol/L (98-107); Estimated CRCL calculation 79 ml/min; Estimated Glomerular Filt Rate > 60; Glucose 84 mg/dL (65-110); Lipase 195 U/L (23-300); Potassium 4.1 mmol/L (3.4-5.0); Sodium 139 mmol/L (137-145)
== END 2022-07-06 10:39 | disposition home or self-care (01) ==
PROVIDERS: Emergency Provider Emergency Medicine; PCP Nurse Practitioner
DX: K57.92 Diverticulitis of intestine, part unspecified, without perforation or abscess without bleeding (principal); F41.9 Anxiety disorder, unspecified; Z90.710 Acquired absence of both cervix and uterus; Z90.721 Acquired absence of ovaries, unilateral; Z87.891 Personal history of nicotine dependence
CPT/HCPCS: 36415; 80053; 81003; 81025; 83690; 85025; 99283

== ENCOUNTER 2022-07-14 07:40 | Outpatient (CLI) | payer OTHER, SELFPAY ==
--- NOTE | ~2022-07-14 | CT_ITS ---
CT Abdomen and Pelvis with contrast. History: Abdominal pain. Spiral CT of the abdomen and pelvis was performed after the administration of intravenous contrast. 1 00 cc of Omnipaque 350 was administered intravenously without complication. Dose reduction technique was used on this scan by utilizing automated exposure control and iterative reconstruction technique. The dose-length product (DLP) was 259.63 mGy-cm. COMPARISON: 02/08/2021 Findings: Scans through the lung bases demonstrate mild atelectatic change. The liver, spleen, pancreas, gallbladder, adrenals and kidneys are within normal limits. No evidence of aortic aneurysm. No lymphadenopathy is seen. There is no evidence of bowel obstruction. There is no evidence to suggest acute appendicitis or dive rticulitis. Images through the pelvis were performed. Urinary bladder unremarkable. No adnexal mass seen. No asci frantz. No ascites is seen. Impression: No significant abnormalities seen. Reviewed, dictated and finalized at [facility]. NDSKEEPER Impression: No significant abnormalities seen.
== END 2022-07-14 07:41 | disposition home or self-care (01) ==
PROVIDERS: PCP Nurse Practitioner; Visit Provider Nurse Practitioner Family
DX: R10.9 Unspecified abdominal pain (principal)
CPT/HCPCS: 74177; Q9967

== ENCOUNTER 2022-07-19 08:05 | Outpatient (CLI) | payer OTHER, SELFPAY ==
--- NOTE | ~2022-07-19 | NM_ITS ---
EXAMINATION: NM hepatobiliary wo pharm DATE: 07/19/2022 10:28 INDICATION: Right upper quadrant abdominal pain. COMPARISON: CT abdomen and pelvis 07/14/22 TECHNIQUE: 4.8 mCi Tc-99m mebrofenin (Choletec) was administered intravenously. Scintigraphic images of the abdomen were obtained for one hour. Then, the patient drank 8 oz Ensure, and imaging was cont inued for 60 minutes. FINDINGS: There is normal clearance of radiotracer from the blood pool. There is homogeneous tracer u ptake by the liver. Activity progresses to the bowel and gallbladder. Gallbladder ejection fraction (GBEF) was 23%. Note that with this technique, normal GBEF >= 33%. IMPRESSION: 1. Low gallbladder ejection fraction, consistent with gallbladder dysfunction and/or chronic cholecy stitis. Reviewed, dictated and finalized at location A. ENSATOR WORKER IMPRESSION: 1. Low gallbladder ejection fraction, consistent with gallbladder dysfunction and/or chronic cholecystitis.
== END 2022-07-19 08:06 | disposition home or self-care (01) ==
PROVIDERS: PCP Nurse Practitioner; Visit Provider Nurse Practitioner Family
DX: R10.11 Right upper quadrant pain (principal); K82.8 Other specified diseases of gallbladder
CPT/HCPCS: 78226; A9537

== ENCOUNTER 2022-07-26 06:49 | Emergency (ER) | payer OTHER, SELFPAY ==
[2022-07-26 06:56] VITALS: BP 118/63; PULSE 83; RESP 14; TEMP 36.6; O2SAT 99
--- NOTE | 2022-07-26 08:03 | ED.BACK ---
HPI - Back Pain/Injury General Chief Complaint: Back Pain/Injury Stated Complaint: back pain. Time Seen by Provider: 07/26/22 07:01 History of Present Illness HPI Narrative: Patient is a 52-year-old female who presents ER with low back pain. Patient reports she had been moving furniture and shampooing carpets at her home yesterday. While she is lying in bed she began having pain in her low back and feelings of it tightening up. No numbness or tingling in the legs or groin. No difficulty with urination/defecation. No sudden onset pain while performing work. Has found no alleviating factors at home. Related Data Home Medications Medication Instructions Recorded Confirmed citalopram 10 mg tablet 10 mg PO DAILY 06/22/22 07/22/22 Lactobacillus 1 cap PO DAILY 07/22/22 07/22/22 acidophilus-Bifidobac.animalis 2.5 billion cell capsule (Daily Probiotic) Allergies Allergy/AdvReac Type Severity Reaction Status Date / Time Sulfa (Sulfonamide Allergy Severe Difficulty Verified 07/26/22 06:49 Antibiotics) Breathing Review of Systems Review of Systems: All systems reviewed & are unremarkable except as noted in HPI and below Constitutional: Constitutional: Denies chills and Denies fever(s) Musculoskeletal: Musculoskeletal: Reports back pain, Denies arthralgias and Denies joint swelling Neurologic: Denies focal weakness and Denies numbness PMFSH Past Medical History Medical History Abdominal pain Anxiety Change in bowel habits Diverticulitis of intestine with abscess Nausea Surgical History Surgical History H/O hysterectomy with unilateral oophorectomy History of section Social History Social History Smoking status: Never smoker Alcohol intake: former Substance use: current Substance use type: marijuana Other substance usage details: cbd gummies Last use: 01/22/21 Living arrangements: alone Gender identity (if verbalized by the patient): Female Spiritual care concerns: No Exam Narrative: GENERAL: Well-appearing, well-nourished, and in no acute distress. HEAD: Normocephalic, atraumatic. Back: No reproducible midline tenderness of the T/L-spine. There is mild bilateral lobe back discomfort in the lumbar region without palpable spasm. No redness or contusions. EXTREMITIES: Normal range of motion. No edema. SKIN: Warm, dry, no rash. NEURO: Alert and oriented x3. PSYCH: Normal mood and affect. Course Course Emergency Course: Patient received IV fluids/Toradol/Flexeril. She is feeling somewhat improved and was able to get a little bit more sleep which she had been unable to do at home. She is having no infectious symptoms and no neurologic deficits. [place] appropriate for discharge home. X-ray not felt indicated at this time. Patient aware of diagnosis and treatment plan. Vital Signs Vital signs: Vital Signs Temperature 97.9 F 07/26/22 06:56 Pulse Rate 83 07/26/22 06:56 Respiratory Rate 14 07/26/22 06:56 Blood Pressure 118/63 07/26/22 06:56 Pulse Oximetry 99 07/26/22 06:56 Temperature 97.9 F 07/26/22 06:56 Pulse Rate 83 07/26/22 06:56 Respiratory Rate 14 07/26/22 06:56 Blood Pressure 118/63 07/26/22 06:56 Pulse Oximetry 99 07/26/22 06:56 Discharge Plan Discharge Clinical Impression: Strain of lumbar region Patient Disposition: Home, Self-Care Condition: Stable Instructions: Acute Low Back Pain (ED) Additional Instructions: Return to the ER if you have increased pain in your back, you develop lower extremity weakness/numbness/paralysis, you have numbness or tingling in your private parts, or you are unable to control your ability to urinate/stool. Prescriptions: New cyclobenzaprine 10 mg tablet 10 mg PO TID PRN (Reason: muscle spasm) Qty
[2022-07-26] MEDS: SODIUM CHLORIDE 0.9% IV 1,000 ML 999 ML IV CONT (08:15)
[2022-07-26] MEDS: KETOROLAC 30 MG/ML VIAL (*BKC) IV PUSH (08:15)
[2022-07-26] MEDS: CYCLOBENZAPRINE HCL 10 MG TABLET PO (08:27)
[2022-07-26 09:08] VITALS: BP 119/52; PULSE 70; RESP 16
== END 2022-07-26 09:10 | disposition home or self-care (01) ==
PROVIDERS: Emergency Provider Emergency Medicine; PCP Nurse Practitioner
DX: S39.012A Strain of muscle, fascia and tendon of lower back, initial encounter (principal); F41.9 Anxiety disorder, unspecified; Z90.710 Acquired absence of both cervix and uterus; Z90.721 Acquired absence of ovaries, unilateral; X50.0XXA Overexertion from strenuous movement or load, initial encounter
CPT/HCPCS: 96361; 96374; 99284; A9270; J1885; J7030

== ENCOUNTER 2022-07-28 15:17 | Outpatient (CLI) | payer OTHER, SELFPAY ==
--- NOTE | 2022-07-28 15:30 | ECG_ITS ---
Measurements Intervals [place] Rate: 76 P: 61 CO: 158 QRS: 66 QRSD: 89 T: 60 QT: 361 QTc: 407 Interpretive Statements SINUS RHYTHM NORMAL ECG NO PREVIOUS ECG AVAILABLE FOR COMPARISON Electronically Signed On 07-29-2022 10:02:47 COMPOUND FINISHER by Janes Parrish M.D.
[2022-07-28 15:45] LABS: Amylase 127 U/L (30-110)
== END 2022-07-28 15:18 | disposition home or self-care (01) ==
PROVIDERS: PCP Nurse Practitioner; Visit Provider Surgery
DX: K80.10 Calculus of gallbladder with chronic cholecystitis without obstruction (principal); Z01.818 Encounter for other preprocedural examination
CPT/HCPCS: 36415; 82150; 86850; 86900; 86901; 93005

== ENCOUNTER 2022-08-02 00:34 | Day surgery (SDC) | payer OTHER, SELFPAY ==
[2022-07-22 15:42] VITALS: BMI 24.2
--- NOTE | 2022-07-22 15:48 | PC.NURSE ---
Report to the Outpatient Waiting Room, entrance under the green pavilion located off [facility], at time 11:30 on date 08/02/22. Planned Procedure Time: 1:30. Time changes happen often and if your time is changed the preop area will call you the afternoon before. - You and your visitor will be asked to self-screen and do not enter if you have any COVID symptoms. - Only one visitor is requested with a max of two and NO children visitors are allowed at this time. - The patient visitor may be requested to leave or wait in car when not with patient due to distancing restrictions. - A mask is optional within the hospital at this time. Patients may have clear liquids (water, carbonated beverages, clear teas, apple juice) until 3 hours prior to surgery with a maximum of 20 ounces. - No food from midnight until time of surgery Take the following medications with a SIP of water the morning of surgery: CITALOPRAM DO NOT STOP ANY OF YOUR OTHER PRESCRIPTION MEDICATIONS PRIOR TO SURGERY?EXCEPT THE FOLLOWING Medications to discontinue per physician: VITAMINS/SUPPLEMENTS Date to take last dose: 07/29/22 Please no make-up, nail vietnamese, hairspray, perfume, deodorant, or body powder the day of surgery. No jewelry (including any body piercings) or valuables the day of surgery, leave them at home. Please take a shower or bath the night before, or the morning of, surgery with an antibacterial soap (HIBICLENS). Wear comfortable, loose fitting clothing. - Jewelry must be removed prior to entering the operating room. Rings and piercings that are not removed may be cut off. - The hospital will not accept responsibility for valuables. - Please leave all valuables, including medications, at home the day of surgery. If you are going home after surgery, a licensed electric train driver must drive you home. - NO public transportation without another adult if you receive anesthesia. - We recommend that an adult stay with you for 24 hours following discharge. - We also recommend that you do not drive, make important decision, drink alcoholic beverages, or take any drugs that were not prescribed by your health care provider for at least 24 hours after your discharge time. Follow any additional instructions given to you from your surgeon. If you or anyone in your household have experienced Covid symptoms in the past week, please notify your surgeon or the nurse liaison at the phone number below for possible testing. Telephone instructions given to YANIV GARCIA and asked if any additional questions and then verbalized understanding. Patient advised to call surgeon office or pre surgery nurse liaison [phone] if any additional questions.
[2022-08-02] VITALS (11 sets, daily range): BP systolic 117–173; BP diastolic 70–92; PULSE 60–95; RESP 12–18; TEMP 36.4–36.9; O2SAT 97–100
[2022-08-02] MEDS: LACTATED RINGERS 1,000 ML 30 ML IV CONT ×3 (11:52→17:10)
[2022-08-02] MEDS: ACETAMINOPHEN 500 MG TABLET 1000 MG PO (11:56)
[2022-08-02] MEDS: KETOROLAC 15 MG/ML VIAL (*BKC) IV PUSH (11:57)
--- NOTE | 2022-08-02 13:08 | WPDHPUPDATE1 ---
History and Physical Update Update Date/Time: 08/02/22 13:08 History and Physical has been reviewed, including an updated exam of the patient. There are NO changes in the patient's condition. Risks, benefits, and alternatives have been discussed and questions answered. Patient agrees to proceed with procedure.
--- NOTE | 2022-08-02 13:54 | WPDANESEPPF ---
Anes - Initial Pre Proc Eval Procedure: Operation Date: 08/02/22 13:30 Proposed Procedures p Laparoscopic Cholecystectomy - Marycruz Cavanaugh MD Date/Time: 08/02/22 13:54 Surgeon: Marycruz Cavanaugh MD Pre Op Diagnosis: Chronic Calculus Cholecystitis Patient Data Age: 52 Gender: F Height: 1.6 m Weight: 62 kg Last Vital Signs Temp 36.9 C 08/02/22 11:26 Pulse 79 08/02/22 11:26 Resp 18 08/02/22 11:26 BP 117/73 08/02/22 11:26 Pulse Ox 97 08/02/22 11:26 O2 Del Method Room Air 08/02/22 11:26 Allergies Allergy/AdvReac Type Severity Reaction Status Date / Time Sulfa (Sulfonamide Allergy Severe Difficulty Verified 07/26/22 06:49 Antibiotics) Breathing Home Medications Medication Instructions Recorded Confirmed Type citalopram 10 mg tablet 10 mg PO DAILY 06/22/22 08/02/22 History omeprazole 40 mg capsule,delayed 40 mg PO DAILY 1 month #30 caps 06/22/22 08/02/22 Rx release Lactobacillus 1 cap PO DAILY 07/22/22 08/02/22 History acidophilus-Bifidobac.animalis 2.5 billion cell capsule (Daily Probiotic) cyclobenzaprine 10 mg tablet 10 mg PO TID PRN muscle spasm #20 07/26/22 08/02/22 Rx tabs naproxen 375 mg tablet 375 mg PO BID #14 tabs 07/26/22 08/02/22 Rx Patient hx anesthesia problems: none Family hx anesthesia problems: none Results Review: All pre-operative results and documents have been reviewed as part of the pre-operative evaluation. [facility] Past Medical History Medical History Abdominal pain Anxiety Change in bowel habits Diverticulitis of intestine with abscess Nausea Surgical History Surgical History H/O hysterectomy with unilateral oophorectomy History of section Social History Social History Smoking status: Never smoker Alcohol intake: former Substance use: current Substance use type: marijuana Other substance usage details: cbd gummies Last use: 01/22/21 Living arrangements: alone Gender identity (if verbalized by the patient): Female Spiritual care concerns: No Anes - Eval Final PreProcedure Day of Procedure 08/02/22 13:54 Patient weight: normal Heart: regular rate and rhythm Lungs: clear to auscultation Airway: Mallampati scale class II Neurological: alert and oriented Last oral intake: >/= 8 hours ASA classification: II Emergent: no Anesthetic plan: proceed Anesthesia type and monitoring: general ETT and standard monitoring Results Review: All pre-operative results and documents have been reviewed as part of the pre-operative evaluation. Informed Consent: The patient's anesthetic plan and its attendant risks and benefits were discussed with the patient/family/POA. Questions were solicited and answers provided to the satisfaction of the patient/family/POA.
--- NOTE | 2022-08-02 14:17 | SUR.PREOP ---
1300 PT AWARE OF SURGERY TIME CHANGE, PT SPOKE WITH DR. DING. DENIES NEEDS AT THIS TIME. 1410 PT UP TO RESTROOM, DENIES NEEDS.
[2022-08-02] MEDS: ceFAZolin 2 GM/D5W 50 ML 2 GM/50 ML BAG IVPB (14:32)
[2022-08-02] MEDS: BUPIVACAINE/EPINEPHRINE 0.5% 50 ML VIAL 30 ML INFILTRATE (15:05)
--- NOTE | 2022-08-02 15:07 | W.PM.PROC2 ---
Procedure Note - Detailed Date of Procedure 08/02/22 Pre-op Diagnosis Chronic Calculus Cholecystitis Post-op Diagnosis Same Procedure Performed Laparoscopic cholecystectomy Surgeon Marycruz Cavanaugh MD Anesthesia General Indications 52-year-old female presented to the office complaining of postprandial right upper quadrant abdominal pain associated with nausea and vomiting. Workup including imaging significant for cholecystitis, cholelithiasis. Findings chronic cholecystitis with cholelithiasis Description of Procedure The patient was taken to the operating room placed in the supine position. After adequate induction of general anesthesia, the patient was prepped and draped in normal sterile fashion. A time-out was then performed to verify the patient's identity as well as the procedure being performed. I then made a 5 mm incision in the infraumbilical region. Through this, a Veress needle was placed into the peritoneal cavity and CO2 gas was then insufflated. After adequate pneumoperitoneum was achieved, the Veress needle was removed and a 5 mm optiview trocar was placed through this incision under direct visualization. I then placed the laparoscope through this trocar site and under direct visualization placed a further 12 mm subxiphoid port as well as 2 additional 5 mm ports in the right upper abdomen. The gallbladder was then identified and was noted to be moderately inflamed and distended. I was able to place a grasper at the dome of the gallbladder and this was retracted anterior and cephalad up over the liver. A 2nd retractor was then placed at the infundibulum and retracted laterally, this allowed visualization of the triangle of Calot. I then was able to visualize the cystic duct in its entirety from its proximal insertion into the gallbladder, to its distal junction with the common hepatic/common bile duct junction. At this point, I carefully skeletonized the proximal cystic duct with the [place] dissector. I then clipped and transected the proximal cystic duct. Next I visualized the cystic artery. Again the artery was skeletonized, clipped, and transected. I then used the Bovie cautery to take down the peritoneal attachments of the gallbladder off the liver bed. This was somewhat difficult given the intrahepatic nature of the gallbladder. Once the gallbladder specimen was completely detached, an endo-pouch was placed through the 12 mm port site. I then placed the gallbladder specimen into the Endo pouch and removed the endo-pouch from the 12 mm port site. The specimen will now be sent to pathology for further review. I then copiously irrigated the right upper quadrant. Some mild oozing was noted in the liver bed and this was controlled with the bovie cautery. Hemostasis was noted in the liver bed, the clips were noted to be in good position on both the cystic duct stump and the cystic artery stump. No other pathology was noted in the right upper quadrant. I then moved the laparoscope to the subxiphoid port. No iatrogenic injury or other pathology was noted in the lower abdomen. I then closed the 12 mm trocar site under direct visualization using the Jesus Alberto cone and 0 Vicryl suture. At this point, the abdomen was desufflated and all ports removed. All port sites were then closed with 4.O Monocryl subcuticular sutures. Dermabond was placed on each incision. The patient tolerated the procedure well, was extubated in the operating room postoperative and will be transferred to the recovery room in stable condition Estimated Blood Loss 10 Drains No Packing No Pathology Yes Complications No immediate complications Condition Stable Disposition PACU [facility] Billing Surgery - Charge Forward: Surgery Billing
[2022-08-02] MEDS: ONDANSETRON INJ 4 MG/2 ML VIAL IV PUSH (15:27)
[2022-08-02] MEDS: SCOPOLAMINE 1.5 MG PATCH TRANSDERM (15:54)
[2022-08-02] MEDS: diphenhydrAMINE HCl INJ 50 MG/ML VIAL 25 MG IV PUSH (15:57)
[2022-08-02] MEDS: PROMETHAZINE HCL 25 MG/ML AMPUL 12.5 MG IV PUSH (17:15)
== END 2022-08-02 18:15 | disposition home or self-care (01) ==
PROVIDERS: PCP Nurse Practitioner; Visit Provider Surgery
PROC: 0FT44ZZ Resection of Gallbladder, Percutaneous Endoscopic Approach (ICD-10-PCS; CPT 47562; principal; 2022-08-02 13:30)
DX: K81.1 Chronic cholecystitis (principal); F41.9 Anxiety disorder, unspecified; F12.90 Cannabis use, unspecified, uncomplicated
CPT/HCPCS: 47562; 36415; 82150; 86850; 86900; 86901; 88304; 93005; A9270; J0690; J1100; J1170; J1200; J1885; J2250; J2405; J2550; J2704; J2710; J3010; J7120

== ENCOUNTER 2022-11-09 16:05 | Outpatient (CLI) | payer OTHER, SELFPAY ==
--- NOTE | ~2022-11-09 | MM_ITS ---
EXAMINATION: MM screening bethanie BI w terry HISTORY: Screening mammogram TECHNIQUE: Craniocaudal and mediolateral oblique 3-D tomosynthesis images were obtained and synthetic 2-D images were generated. CAD analysis was submitted and interpreted. COMPARISON: 01/01/2021, 11/16/2018, 05/27/2017 BREAST PARENCHYMAL COMPOSITION:The breasts are heterogeneously dense, which may obscure small masses. FINDINGS: There is a 5 mm oval asymmetry in the slightly upper, central right breast, only seen on ML O view, new from prior exam. No suspicious mass or architectural distortion seen in the left breast. No suspicious microcalcifications. IMPRESSION: 5 mm oval asymmetry in the slightly upper, central right breast. Spot compression and true lateral v iews, and possibly ultrasound, are recommended for further evaluation. BI-RADS Category 0: Incomplete: Needs additional imaging evaluation. Reviewed, dictated and finalized at [facility]. IMPRESSION: 5 mm oval asymmetry in the slightly upper, central right breast. Spot compress ion and true lateral views, and possibly ultrasound, are recommended for furthe r evaluation. BI-RADS Category 0: Incomplete: Needs additional imaging evaluation.
== END 2022-11-09 16:06 | disposition home or self-care (01) ==
PROVIDERS: PCP Nurse Practitioner; Visit Provider Obstetrics & Gynecology
DX: Z12.31 Encounter for screening mammogram for malignant neoplasm of breast (principal); N64.89 Other specified disorders of breast
CPT/HCPCS: 77063; 77067

== ENCOUNTER 2022-11-18 12:17 | Outpatient (CLI) | payer OTHER, SELFPAY ==
--- NOTE | ~2022-11-18 | MMUS_ITS ---
EXAMINATION: MM diagnostic bethanie RT w terry, US breast RT complete HISTORY: 5 mm oval mammographic asymmetry reported in the slightly upper central right breast on 2022 screening mammogram TECHNIQUE: Additional 3-D tomosynthesis images of the right breast were performed and synthetic 2-D i mages were generated. CAD analysis was submitted and interpreted. High resolution complete right carla st ultrasound examination including all 4 quadrants and subareolar area was performed. COMPARISON: 11/09/2022 bilateral screening mammogram FINDINGS: MAMMOGRAPHIC FINDINGS: Approximately 6 mm circumscribed low-density opacity with halo sign is noted at mid depth in the oute r mid right breast. The circumscribed margins and halo sign suggest benign process, likely cyst. No suspicious mammographic mass, architectural distortion, malignant calcification, skin thickening o r retraction of the right breast is detected. ULTRASOUND: 9:00 1 cm from nipple: Parallel circumscribed sonolucency measuring 6.2 x 3.6 x 6 0.4 L, with through transmission and posterior enhancement, no internal vascularity, consistent with simple cyst. This c orresponds to the mammographic finding. 10:00 1 cm from nipple: Parallel circumscribed 4.1 x 1.9 x 5.1 mm sonolucent lesion without internal vascularity, benign in appearance IMPRESSION: 1. Benign findings 2. Routine annual mammographic screening is recommended BI-RADS Category 2: Benign finding(s). Reviewed, dictated and finalized at location [facility]. IMPRESSION: 1. Benign findings 2. Routine annual mammographic screening is recommended BI-RADS Category 2: Benign finding(s).
== END 2022-11-18 12:18 | disposition home or self-care (01) ==
PROVIDERS: PCP Nurse Practitioner; Visit Provider Obstetrics & Gynecology
DX: R92.8 Other abnormal and inconclusive findings on diagnostic imaging of breast (principal)
CPT/HCPCS: 76641; 77061; 77065; G0279

== ENCOUNTER 2022-11-23 07:15 | Emergency (ER) | payer OTHER, SELFPAY ==
--- NOTE | ~2022-11-23 | CT_ITS ---
EXAMINATION: CT pelvis wo con DATE: 11/23/2022 09:22 INDICATION: Unable to walk post fall TECHNIQUE: High resolution computed tomography (CT) of the pelvis was performed without intravenous c ontrast. Additional sagittal and coronal reconstructions were performed. Automated exposure control a nd iterative reconstruction technique were employed. The dose-length product was 177.39 mGy-cm. COMPARISON: Radiographs dated 11/23/[address] dated 07/14/2022 FINDINGS: Nondisplaced fracture at the medial aspect of the left superior pubic ramus extending to the pubic orion dy. No other fractures identified. Alignment remains essentially anatomic. 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 No hip joint effusions. Moderate disc height loss at mild to mo derate facet osteoarthritis at L5-S1. There is moderate sigmoid diverticulosis without no adjacent in flammatory change to suggest diverticulitis.. The uterus is not identified and has likely been surgic ally resected. 2.9 cm left adnexal cyst. Tiny fat-containing umbilical hernia. No pathologically enla rged pelvic or inguinal lymphadenopathy. IMPRESSION: 1. Nondisplaced fracture of the left superior pubic ramus/pubic body. Reviewed, dictated and finalized at location [facility].
--- NOTE | ~2022-11-23 | XR_ITS ---
AP view of the pelvis and AP and lateral views of the left hip Clinical history: Pain Findings: No acute fracture or dislocation is seen. Osseous alignment is anatomic. Bilateral hip and SI joint spaces are preserved. Soft tissues are unremarkable. Impression: No significant abnormality is seen. Reviewed, dictated [place] final[place] [facility] Impression: No significant abnormality is seen.
[2022-11-23 07:24] VITALS: BP 112/58; PULSE 81; RESP 16; TEMP 36.2; O2SAT 98
[2022-11-23 07:29] VITALS: BP 130/68; PULSE 72; RESP 18; O2SAT 100
[2022-11-23 07:54] VITALS: O2SAT 100
[2022-11-23 07:55] VITALS: BP 118/68; O2SAT 97
[2022-11-23 08:00] VITALS: O2SAT 98
--- NOTE | 2022-11-23 09:10 | ED.LOWEXIN ---
HPI - Extremity Injury (Lower) General Chief Complaint: Extremity Injury, Lower Stated Complaint: right hip pain Time Seen by Provider: 11/23/22 08:59 History of Present Illness HPI Narrative: 52-year-old female reports for evaluation after ground-level mechanical fall that occurred this morning. Patient states she was carrying many of her bags in the parking lot, tripped over her feet and fell to the ground. States she landed on her left side and is not complaining of pain to her left pelvis. She states she was able to get up after the fall, however has had extreme pain since with movement of her left hip and while ambulating. She denies any other injuries acquired during the fall. She did not hit her head or lose consciousness. Denies paresthesias, lower extremity weakness, back pain, neck pain, vision changes, focal numbness or weakness, chest pain or shortness of breath. She has not taken anything for pain. Reports she is able to ambulate but with extreme difficulty. Related Data Home Medications Medication Instructions Recorded Confirmed citalopram 10 mg tablet 10 mg PO DAILY 06/22/22 08/17/22 Lactobacillus 1 cap PO DAILY 07/22/22 08/17/22 acidophilus-Bifidobac.animalis 2.5 billion cell capsule (Daily Probiotic) Allergies Allergy/AdvReac Type Severity Reaction Status Date / Time Sulfa (Sulfonamide Allergy Severe Difficulty Verified 11/23/22 07:23 Antibiotics) Breathing Review of Systems Review of Systems: CONSTITUTIONAL: Denies fever, chills EYES: Denies visual changes, redness, or discharge. ENT: Denies rhinorrhea, congestion, sore throat, or otalgia. CARDIOVASCULAR: Denies chest pain, palpitations, or edema. RESPIRATORY: Denies cough or dyspnea. GASTROINTESTINAL: Denies abdominal pain, nausea, vomiting, or diarrhea. GENITOURINARY: Denies dysuria or hematuria. SKIN: Denies rash or itching. MUSCULOSKELETAL: See HPI NEUROLOGIC: Denies headache, numbness, dizziness, or weakness. PSYCHIATRIC: Denies anxiety or depression. [facility] Past Medical History Medical History Abdominal pain Anxiety Change in bowel habits Diverticulitis of intestine with abscess Nausea Surgical History Surgical History H/O hysterectomy with unilateral oophorectomy History of section S/P laparoscopic cholecystectomy 08/02/22 Social History Social History Smoking status: Never smoker Alcohol intake: former Substance use: current Substance use type: marijuana Other substance usage details: cbd gummies Last use: 01/22/21 Living arrangements: alone Gender identity (if verbalized by the patient): Female Spiritual care concerns: No Exam Narrative: GENERAL: Well-appearing, in no acute distress. HEAD: Normocephalic EYES: PERRLA ENT: Nares clear. Mucous membranes moist. Oropharynx without tonsillar hypertrophy exudate or other lesions. NECK: Supple. No midline cervical tenderness, step-offs or deformities CHEST: No respiratory distress. Clear to auscultation, no adventitious breath sounds. HEART: Regular rate and rhythm. No murmur heard. Normal peripheral pulses. ABDOMEN: Soft, nontender, normal active bowel sounds. Back: No midline spinous tenderness, step-offs or deformities. EXTREMITIES: Tenderness along the left inguinal region without overlying skin changes. Full range of motion of bilateral lower extremities. No tenderness to remainder of extremities. Strength 5/5 in BUE and BLE. Sensation intact throughout. DP and radial pulses 2+. SKIN: Warm, dry, no rash. NEURO: No focal deficits. Alert and oriented x3. PSYCH: Normal mood and affect. Course Vital Signs Vital signs: Vital Signs Temperature 97.1 F L 11/23/22 07:24 Pulse Rate 81 11/23/22 07:24 Respiratory Rate 16 11/23/22 07:24 Blood Pres
[2022-11-23] MEDS: HYDROcodone/acetaminophen (*CRX) 5-325 MG TABLET 1 TAB PO (09:25)
[2022-11-23] MEDS: IBUPROFEN 600 MG TABLET PO (09:25)
[2022-11-23 10:03] VITALS: BP 113/68; PULSE 76; RESP 16; O2SAT 100
== END 2022-11-23 11:11 | disposition home or self-care (01) ==
PROVIDERS: Emergency Provider Physician Assistant; PCP Nurse Practitioner
DX: S32.592A Other specified fracture of left pubis, initial encounter for closed fracture (principal); F41.9 Anxiety disorder, unspecified; Z90.710 Acquired absence of both cervix and uterus; Z90.721 Acquired absence of ovaries, unilateral; Z90.49 Acquired absence of other specified parts of digestive tract; W01.0XXA Fall on same level from slipping, tripping and stumbling without subsequent striking against object, initial encounter
CPT/HCPCS: 72192; 73502; 99284; A9270

== ENCOUNTER 2023-10-04 13:26 | Outpatient (CLI) | payer OTHER, SELFPAY ==
--- NOTE | ~2023-10-04 | MR_ITS ---
EXAMINATION: MR brain/brain stem wo con DATE: 10/04/2023 14:03 INDICATION: Dizziness. Headache. TECHNIQUE: Magnetic resonance imaging (MRI) of the brain and brainstem was performed without intraven ous contrast. COMPARISON: Brain MRI 09/23/2012 FINDINGS: There are scattered areas of nonspecific increased T2-weighted signal intensity in the cere bral white matter, which is within normal limits for the patient's age. There is no intracranial hemo rrhage, acute infarction, or abnormal intracranial mass lesion. The ventricles are normal in size. Th e paranasal sinuses are clear. The orbits are normal. The mastoid air cells are normal. IMPRESSION: 1. Normal aging brain. Reviewed, dictated and finalized at location [facility]. IMPRESSION: 1. Normal aging brain.
== END 2023-10-04 13:27 ==
LOC: MICIMG 13:28
PROVIDERS: PCP Nurse Practitioner; Visit Provider Nurse Practitioner
DX: R42 Dizziness and giddiness (principal); R51.9 Headache, unspecified; H53.9 Unspecified visual disturbance
CPT/HCPCS: 70551

== ENCOUNTER 2024-05-09 12:55 | Outpatient (CLI) | payer OTHER, SELFPAY ==
--- NOTE | ~2024-05-09 | CT_ITS ---
Non-contrast CT scan of the Abdomen and Pelvis Clinical indication: Abdominal pain Technique: 2.5 mm axial scans were obtained through the abdomen and pelvis without intravenous or or al contrast. Dose reduction technique was used on this scan by utilizing automated exposure control a nd iterative reconstruction technique. The dose-length product (DLP) was 337.54 mGy-cm. COMPARISON: 11/23/2022 Findings: Images through the lung bases reveal no abnormalities. There is no evidence of renal or ureteral calculi. The kidneys and the ureters are nondilated. The liver, spleen, pancreas, and adrenals appear normal. Cholecystectomy clips are present. There is no aortic aneurysm. There is no evidence of bowel obstruction. Images through the pelvis were performed. There is no evidence of ascites or lymphadenopathy. Urinary bladder unremarkable. No pelvic mass seen. Impression: No significant abnormality seen. Reviewed, dictated and finalized at [facility]. OR ACCOUNTANT ANALYST Impression: No significant abnormality seen.
--- NOTE | ~2024-05-09 | US_ITS ---
US axilla LT 05/09/2024 13:37 Indication: Left axillary fullness Procedure: High-resolution Limited ultrasound of the left axilla Comparison: No prior studies for comparison. Findings: There are normal-appearing left axillary lymph nodes without significant cortical thickenin g, largest lymph node measuring 9 mm. Impression: 1: Normal left axillary lymph nodes. No suspicious masses are identified. BI-RADS CATEGORY 2 - BENIGN FINDINGS Reviewed, dictated and finalized at location [facility]. BUILDER Impression: 1: Normal left axillary lymph nodes. No suspicious masses are identified. BI-RADS CATEGORY 2 - BENIGN FINDINGS
== END 2024-05-09 12:56 | disposition home or self-care (01) ==
LOC: MICIMG 12:56
PROVIDERS: PCP Nurse Practitioner; Visit Provider Nurse Practitioner
DX: R22.32 Localized swelling, mass and lump, left upper limb (principal); R10.32 Left lower quadrant pain
CPT/HCPCS: 74176; 76882

== ENCOUNTER 2024-09-18 14:01 | Outpatient (CLI) | payer OTHER, SELFPAY ==
--- NOTE | ~2024-09-18 | CT_ITS ---
CT of the Abdomen and Pelvis: Indication: Abdominal pain Technique: 2.5 mm axial scans were obtained through the abdomen and pelvis following intravenous adm inistration of 100 cc of Omnipaque 350. Dose reduction technique was used on this scan by utilizing a utomated exposure control and iterative reconstruction technique. The dose-length product (DLP) was 2 64.69 mGy-cm. COMPARISON: 05/09/2024 Findings: Scans through the lung bases are unremarkable. The liver, spleen, pancreas, adrenals and kidneys are within normal limits. Cholecystectomy clips are present. No evidence of aortic aneurysm. No lymphadenopathy. No bowel obstruction or bowel wall thickening. There is no evidence to suggest acute appendicitis. Images through the pelvis were performed. Urinary bladder unremarkable. No pelvic mass seen. No ascit es. Impression: No significant abnormalities seen. Reviewed, dictated and finalized at [facility]. Impression: No significant abnormalities seen.
--- OUTSIDE RECORDS SUMMARY | 2024-09-18 15:19 | XMS_ITS | Clinical Summary ---
Author Organization [facility] Address [address] [place] [address] Phone Care Team Providers Care Producer Director Name Role Phone Juju Sofia APN Primary Care Provider + Allergies Active Allergy Reactions Criticality Noted Date Comments Sulfa (Sulfonamide Antibiotics) Hives High 04/07 Medications No known medications Active Problems Problem Noted Date Diagnosed Date Idiopathic acute pancreatitis without infection or necrosis 05/01/2021 High serum ferritin 05/01/2021 Generalized muscle weakness 05/01/2021 Acute diarrhea 05/01/2021 Generalized anxiety disorder 05/01/2021 Social History Tobacco Use Types Packs/Day Years Used Date Smoking Tobacco: Never Smokeless Tobacco: Never Alcohol Use Standard Drinks/Week Comments Not Currently 0 (1 standard drink = 0.6 oz pur e alcohol) Comments Unknown Sex and Gender Information Value Date Recorded Sex Assigned at Not on file Legal Sex Female 9:47 AM KILN PLACER Gender Identity Not on file Sexual Orientation Not on file Last Filed Vital Signs Vital Sign Reading Time Taken Comments Blood Pressure 126/58 05/02/2021 12:29 PM KILN PLACER Pulse 73 05/02/2021 12:29 PM KILN PLACER Temperature 36.7 C (98.1 F) 05/02/2021 12:29 PM KILN PLACER Respiratory Rate 18 05/02/2021 12:29 PM KILN PLACER Oxygen Saturation 100% 05/02/2021 12:29 PM KILN PLACER Inhaled Oxygen Concentration - - Weight 59.7 kg (131 lb 9.6 oz) 05/01/2021 3:22 P M KILN PLACER Height 160 cm (5' 3 ) 05/01/2021 3:22 PM KILN PLACER Body Mass Index 23.31 05/01/2021 3:22 PM KILN PLACER Plan of Treatment Health Maintenance Due Date Last Done Comments DTAP/TDAP/TD VACCINES (1 - Tdap) 1991 HEPATITIS B VACCINES (1 of 3 - 19+ 3-dose series) 03/07 HPV/Cotest (21-29) 1993 CERVICAL CANCER SCREENING 2002 HPV/Cotest (30-65) 2002 PAP SMEAR 2002 BREAST CANCER SCREENING 2012 COLORECTAL SCREENING 2017 Colorectal Cancer Screening 2017 FIT-DNA Q 3 years 2017 FIT/FOBT Q 1 year 2017 Flex Sig/CT Colonography Q 5 years 2017 ZOSTER VACCINE (1 of 2) 2022 INFLUENZA VACCINE (#1) 2024 Additional Health Concerns Infection Onset Date Last Indicated R/O C. diff 05/01/2021 05/01/2021 [place] [address] Advance Directives For more information, please contact: [phone] * Full Code (Latest Code Status on File) Date Activated Date Inactivated Comments 05/01/2021 3:27 PM 05/02/2021 5:37 PM Care Teams Producer Director Relationship Specialty Start Date End Date Juju Sofia APN PCP - General NURSE PRACTITIONER 05/01/21
--- OUTSIDE RECORDS SUMMARY | 2024-09-18 15:19 | XMS_ITS | Encounter Summary ---
Author Organization [facility] Address [address] [place] [address] Care Team Providers Care Printing Specialist Name Role Phone Juju Sofia NP Primary Care Provider [phone] Encounter Details Date Type Department Care Team (Late st Contact Info) Description 10/07/2023 Trubates Message Enc [facility] Family Medicine [facility] [address] [place] [address] [facility] Social History Tobacco Use Types Packs/Day Years Used Date Smoking Tobacco: Never Passive Smoke Exposure: Past Smokeless Tobacco: Never Alcohol Use Standard Drinks/Week Comments Yes 0 (1 standard drink = 0.6 oz pur e alcohol) very rare PHQ-2 Answer Date Recorded Patient Health Questionnaire-2 Score 0 06/22/2023 Comments No Sex and Gender Information Value Date Recorded Sex Assigned at Not on file Legal Sex Female 2:40 PM AVIONICS SAFETY INSPECTOR Gender Identity Not on file Sexual Orientation Not on file documented as of this encounter Plan of Treatment Not on file documented as of this encounter Visit Diagnoses Not on filedocumented in this encounter Additional Health Concerns Assessment Noted Time PHQ-9 Depression Total Score: 8 12/06/19 21 12:12 PM CDT documented as of this encounter Care Teams Printing Specialist Relationship Specialty Start Date End Date Juju Sofia NP [address] [place] [address] PCP - General NURSE PRACTITIONER 12/05/20 documented as of this encounter
--- OUTSIDE RECORDS SUMMARY | 2024-09-18 15:19 | XMS_ITS | Clinical Summary ---
Author Organization [facility] Address [address] [place] [address] Care Team Providers Care Type Caster Name Role Phone Juju Sofia APRN-[facility] Primary Care Provi casey Source Comments [facility],non-owned Affiliates and Associated Physician Practices is amultiple site organization consisting of ambulatory clinics and hospital sitesin [place], [place], [place] and [place]. This disclosure is being madepursuant to the Care Everywhere program and may not contain all information available regarding this patient. Last updated 18.[facility] Allergies Active Allergy Reactions Criticality Noted Date Comments Sulfa Drugs Urticaria Medium 06/20/2019 Medications * Be aware that medications may not be up to date on this document. Alwaysverify current medications with the patient. benzonatate (TESSALON) 200 MG capsule Take 1 capsule by mouth 3 times daily as needed for Cough 30 capsule 06/20/2019 Active Encounters Date Type Department Care Team Description 09/17/2024 Orders Only [facility] - Orthopedic Surgery [address] [place] [address] Adama Malik MD Pain of left hand ; Carpal tunnel syndrome of left wrist 07/11/2024 Travel from Last 3 Months Social History Tobacco Use Types Packs/Day Years Used Date Smoking Tobacco: Never Smokeless Tobacco: Never Comments No Sex and Gender Information Value Date Recorded Sex Assigned at Not on file Legal Sex Female 5:43 AM COMB WINDER Gender Identity Not on file Sexual Orientation Not on file Last Filed Vital Signs Vital Sign Reading Time Taken Comments Blood Pressure 126/80 06/20/2019 9:00 AM COMB WINDER Pulse 84 06/20/2019 9:00 AM COMB WINDER Temperature 37.1 C (98.8 F) 06/20/2019 9:00 AM COMB WINDER Respiratory Rate 16 06/20/2019 9:00 AM COMB WINDER Oxygen Saturation 99% 06/20/2019 9:00 AM COMB WINDER Inhaled Oxygen Concentration - - Weight 65.8 kg (145 lb) 06/20/2019 9:00 AM COMB WINDER Height 160 cm (5' 3 ) 06/20/2019 9:00 AM COMB WINDER Body Mass Index 25.69 06/20/2019 9:00 AM COMB WINDER Plan of Treatment Upcoming Encounters Date Type Department Care Team (Late st Contact Info) Description 09/20/2024 10:00 AM CDT Office Visit [facility] [address] [place] [id number] Adama Malik MD [address] [place] [phone] 09/20/2024 10:00 AM CDT Appointment [facility] - Orthoped[facility] [address], [address] [place] [id number] Adama Malik MD [address] [address] Health Maintenance Due Date Last Done Comments COLOGUARD (AGES 45-75) - COL ON CA SCREENING 1972 COLON MONITORING 1972 COLONOSCOPY - COLON CA SCREENING 1972 CT COLONOGRAPHY - COLON CA SCREENING 1972 Colorectal Cancer Screening 1972 FIT - COLON CA SCREENING 1972 FLEX SIG - COLON CA SCREENING 1972 LIPID TESTING 1972 PAP SMEAR 1972 HIV SCREENING 1987 DTAP/TDAP/TD VACCINES (1 - Tdap) 1991 HEPATITIS B VACCINE (1 of 3 - 19+ 3-dose series) 1991 SCREENING FOR DIABETES 06/20/2019 PNEUMOCOCCAL VACCINE 50+ (1 of 1 - PCV) 2022 ZOSTER VACCINE (1 of 2) 2022 COVID-19 VACCINE (1 - 2023-2 5 season) 2024 DEPRESSION SCREENING 06/06/2024 MAMMOGRAM 11/18/2024 11/18/2022 INFLUENZA VACCINE (Season Ended) 2025 HEPATITIS C SCREENING Completed 04/30/2024 HIB VACCINE Aged Out No longer eligi ble based on patient's age to complete this topic HPV VACCINE Aged Out No longer eligi ble based on patient's age to complete this topic MENINGOCOCCAL (Group B) VACC INE SHARED DECISION-MAKING Aged Out No longer eligibl e based on patient's age to complete this topic MENINGOCOCCAL GROUPS A/C/Y/W VACCINE Aged Out No longer eligible b ased on patient's age to complete this topic Insurance [facility] Care Teams Type Caster Relationship Specialty Start Date End Date Juju Sofia APRN-[facility] [address] [place] [address] PCP - General 08/17/22
--- OUTSIDE RECORDS SUMMARY | 2024-09-18 15:19 | XMS_ITS | Encounter Summary ---
Author Organization [facility] Address [address] [place] [address] Care Team Providers Care Applications Development Consultant Name Role Phone [facility] Primary Care Provi casey Encounter Details Date Type Department Care Team (Late st Contact Info) Description 09/17/2024 Orders Only [facility] - [facility] [address] [place] [phone] Adama Malik MD [facility] [phone] Pain of left hand ; Carpal tunnel syndrome of left wrist Social History Tobacco Use Types Packs/Day Years Used Date Smoking Tobacco: Never Smokeless Tobacco: Never Comments No Sex and Gender Information Value Date Recorded Sex Assigned at Not on file Legal Sex Female 5:43 AM DIETITIAN CONSULTANT Gender Identity Not on file Sexual Orientation Not on file documented as of this encounter Plan of Treatment Upcoming Encounters Date Type Department Care Team (Late st Contact Info) Description 09/20/2024 10:00 AM CDT Office Visit [facility] [place] [phone] Adama Malik MD [address] [phone] 09/20/2024 10:00 AM CDT Appointment [facility] - Orthopedics [address] [place] [address] Adama Malik MD [address] [phone] Scheduled Orders Name Type Priority Associated Diagnoses Orde r Schedule XR Wrist Left 3Vw or More Imaging Routine Carpal tunnel syndrome of left wrist Pain of left hand 1 Occurrences starting 09/17/2024 until 09/17/2025 XR Hand Left 3Vw or More Imaging Routine Carpal tunnel syndrome of left wrist Pain of left hand 1 Occurrences starting 09/17/2024 until 09/17/2025 documented as of this encounter Visit Diagnoses Diagnosis Pain of left hand- Primary Pain in limb Carpal tunnel syndrome of left wrist Carpal tunnel syndrome documented in this encounter Care Teams Applications Development Consultant Relationship Specialty Start Date End Date Juju Sofia APRN-PRICING/SIGNAGE TEAM MEMBER [address] [place] [address] PCP - General 08/17/22 documented as of this encounter
--- OUTSIDE RECORDS SUMMARY | 2024-09-18 15:19 | XMS_ITS | Encounter Summary ---
Author Organization [facility] Address [address] [place] [address] Phone Care Team Providers Care Autocutter Name Role Phone Juju Sofia APRN, CNP Primary Care Provid er Gildardo Duron DO Unavailable [phone] Encounter Details Date Type Department Care Team (Late st Contact Info) Description 05/05/2021 Telephone [facility] [address] [place] [address] Gildardo Duron, DO [address] [place] [address] Social History Tobacco Use Types Packs/Day Years Used Date Smoking Tobacco: Never Smokeless Tobacco: Never PHQ-2 Answer Date Recorded Total Score - Questions 1-9 1 02/04 Comments Unknown Sex and Gender Information Value Date Recorded Sex Assigned at Not on file Legal Sex Female 1:51 PM CDT Gender Identity Not on file Sexual Orientation Not on file documented as of this encounter Miscellaneous Notes * Telephone Encounter - Geeta Callaway - 05/05/2021 11:49 AM CST CALLED AND LEFT VM CONCERNING NS APPT. LETTER SENT L NUMERICAL TOOL PROGRAMMER documented in this encounter Plan of Treatment Not on file documented as of this encounter Visit Diagnoses Not on filedocumented in this encounter Additional Health Concerns Assessment Noted Time PHQ-9 Depression Total Score: 1 09/14/20 21 10:26 AM CDT documented as of this encounter Care Teams Autocutter Relationship Specialty Start Date End Date Juju Sofia APRN, HAIR DRESSER [address] [place] [address] PCP - General Advanced Practice Nurse 12/30/20 Gildardo Duron DO [address] [place] [phone] Consulting Physician Oncology 12/30/20 documented as of this encounter
--- OUTSIDE RECORDS SUMMARY | 2024-09-18 15:19 | XMS_ITS | Clinical Summary ---
Author Organization [facility] Address [facility] [place] [address] Care Team Providers Care Wheat Grower Name Role Phone Juju Sofia NP Primary Care Provider [phone] Allergies Active Allergy Reactions Criticality Noted Date Comments Sertraline Other (see comment) 05/21/2021 Pancreatitis Sulfa Antibiotics Rash,Hives High 06/20/2019 Medications rizatriptan (MAXALT) 5 MG tabletIndication s:Other migraine without status migrainosus, not intractable Take 1 tablet (5 mg total) by mouth as needed for Migraine. May repeat in 2 hours if needed times one dose 8 tablet 09/29/19 24 Active Multiple Vitamins-Mineral s (WOMENS MULTIVITAMIN OR) Take 1 tablet by mouth daily. Active biotin 300 MCG Tab Take 1 tablet (300 mcg total) by mouth daily. Active vitamin D3 (CHOLECALCIFEROL ) 1.25 mg capsuleIndicatio ns:Vitamin D deficiency Take 1 capsule (50,000 Units total) by mouth once a week. 8 capsule 05/01/20 24 Active citalopram (CELEXA) 20 MG tabletIndication s:Anxiety and depression Take 1 tablet (20 mg total) by mouth daily. 90 tablet 1 06/14/19 25 Active scopolamine (TRANSDERM-SCOP) 1 MG/3DAYS patchIndications :Nausea Place 1 patch onto the skin every third day. 10 patch 01/10/20 24 09/03/2 025 Discontinued omeprazole (PRILOSEC) 40 MG capsuleIndicatio ns:Gastroesophag eal reflux disease, unspecified whether esophagitis present Take 1 capsule by mouth once daily 90 capsule 05/14/20 24 025 Discontinued Active Problems Problem Noted Date Diagnosed Date Carpal tunnel syndrome on right 01/04/2024 Cubital tunnel syndrome on right 01/04/2024 Migraine 01/03/2024 GERD (gastroesophageal reflux disease) Idiopathic acute pancreatiti s without infection or necrosis (HHS/HCC) 05/01/2021 Anxiety and depression 12/05/2020 Vitamin D deficiency 12/05/2020 Resolved Problems Problem Noted Date Diagnosed Date Resolved Date Idiopathic acute pancreatiti s without infection or necrosis (HHS/HCC) 05/21/2021 12/05/19 22 High serum ferritin 02/12/2021 12/05/19 22 Unintentional weight loss 12/05/2020 Encounters Date Type Department Care Team Description 09/18/2024 9:00 AM CDT [facility] [address], [address] [place] [address] Juju Sofia NP Govindarajan, Raghav, MD EMG Testing (LUE-) 09/18/2024 Travel 09/04/[address] [place] [address] Juju Sofia NP Lab Results 09/03/2024 8:40 AM CDT Office Visit [address] [place] [address] Juju Sofia NP Follow Up (Had a pelvic ultrasound with HAND CIGAR MAKING SUPERVISOR and it shows fluid in abdomen. He recommended Colonoscopy. Has pain upper mid abdomen and left lower abdomen.) 09/03/[address] [address] Juju Sofia NP Record Request 09/03/2024 Travel 06/28/2024 10:00 AM CAREER AND TRANSITION TEACHER Office Visit [address] [place] [address] Juju Sofia NP Hand Pain (Patient presents with c/o left hand pain, numbness, and swelling); Follow Up (On anxiety/depression. Citalopram recently increased. Is doing well. ) 06/28/2024 Travel from Last 3 Months Family History Medical History Relation Comments Heart Attack Brother Alzheimers Father Diabetes Father Heart Disease Father Hypertension Father Heart Disease Mother Hypertension Mother bladder cancer Mother Relation Status Comments Brother Father Mother Social History Tobacco Use Types Packs/Day Years Used Date Smoking Tobacco: Never Passive Smoke Exposure: Past Smokeless Tobacco: Never Tobacco Cessation:Counseling Given: No Alcohol Use Standard Drinks/Week Comments Yes 0 (1 standard drink = 0.6 oz pur e alcohol) very rare PHQ-2 Answer Date Recorded Patient Health Questionnaire-2 Score 6 06/14/2024 Comments No Sex and Gender Information Value Date Recorded Sex Assigned at Not on file Legal Sex Female 2:40 PM CAREER AND TRANSITION TEACHER Gender Identity Not on file Sexual Orientation Not on file Last Filed Vital Signs Vital Sign Reading Time Taken Comments Blood Pressure 122/80 09/03/2024 8:45 AM CDT Pulse 77 09/03/2024 8:45 AM CDT Temperature 36.6 C (97.9 F) 09/03/2024 8:45 AM CDT Respiratory Rate 20 09/03/2024 8:45 AM CDT Oxygen Saturation 100% 09/03/2024 8:45 AM CDT Inhaled Oxygen Concentration - - Weight 61.2 kg (135 lb) 09/03/2024 8:45 AM CDT Height 160 cm (5' 3 ) 09/03/2024 8:45 AM CDT Body Mass Index 23.91 09/03/2024 8:45 AM CDT Plan of Treatment Health Maintenance Due Date Last Done Comments DTaP, Tdap and Td Vaccines (1 - Tdap) 1991 Hepatitis B Vaccines (1 of 3 - 19+ 3-dose series) 1991 Pneumococcal Vaccine: 50+ Years (1 of 1 - PCV) 2022 Zoster Vaccines (1 of 2) 2022 COVID-19 Vaccine (3 - 2023- season) 2024 04/24/2021, 02/18/2021 Annual Physical 06/22/2024 06/22/2023, 07/0 06/2021, 06/03/2020 Mammogram Screening 11/18/2024 11/18/2022, 11/09/2022, 01/28/2021, Additional history exists Colorectal Cancer Screening Colonoscopy (10 Years) 05/06/2031 05/06/2021 Hepatitis C Completed 04/30/2024 PHQ-2 (Physician Kenaitze) Completed 06/14/2024 Meningococcal B Vaccine Aged Out No l onger eligible based on patient's age to complete this topic Meningococcal Vaccine Aged Out No jonathan canelo eligible based on patient's age to complete this topic RSV Immunizations Under 20 Months Aged Out No longer eligible based on patient's age to complete this topic Procedures Procedure Name Priority Date/Time Associated Diagnosis Comments COLLECTION VENOUS BLOOD VENIPUNCTURE Routine 09/03/2024 9:24 AM CDT Vitamin D deficiency VITAMIN D, 25 OH Routine 09/03/2024 9:23 AM CDT Vitamin D deficiency HEPATITIS C ANTIBODY Routine 04/30/2024 3:59 PM CAREER AND TRANSITION TEACHER Need for hepatitis C screening test MAMMOGRAM GENERIC (SCAN ORDER) 11/18/2022 COLONOSCOPY GENERIC (SCAN ORDER) 05/06/2021 from Last 3 Months or Most Recently Relevant to Health Maintenance Results * VITAMIN D 25 OH (09/03/2024 9:23 AM CDT) VITAMIN D 25 HYDROXY TOTAL S/P/B 31.6 30 - 100 NG/ML 09/03/2024 4:21 PM CDT [facility] Comment: DEFICIENT <20 INSUFFICIENT 20-30 SUFFICIENT 30-100 09/03/2024 9:23 AM CDT us Juju Sofia NP LABORATORY Final Res ult [facility] [address] [place] [address], * HEPATITIS C ANTIBODY ([facility] ONLY) (04/30/2024 3:59 PM CAREER AND TRANSITION TEACHER) HEPATITIS C AB NON-REACTI VE NON-REACT KARINA 05/01/2024 8:42 PM CAREER AND TRANSITION TEACHER [facility] Comment: ANTIBODIES TO HCV NOT DETECTED. DOES NOT EXCLUDE THE POSSIBILITY OF EXPOSURE TO HCV. 04/30/2024 3:59 PM CAREER AND TRANSITION TEACHER us Juju Sofia CHILD DEVELOPMENT TEACHER LABORATORY Final Res ult [facility] [address] [place] [address], [phone] * MAMMOGRAM GENERIC (11/18/2022) Anatomical Region Laterality Modality Other 11/18/2022 [facility] Scanned SCANNING Final Resu lt * COLONOSCOPY GENERIC (05/06/2021) 05/06/2021 Narrative 05/06/2021 Ordered by an unspecified provider. us Documents Scanned SCANNING Final Result from Last 3 Months or Most Recently Relevant to Health Maintenance Insurance [facility] Care Teams Wheat Grower Relationship Specialty Start Date End Date Juju Sofia NP [address] [place] [address] PCP - General NURSE PRACTITIONER 12/05/20
--- OUTSIDE RECORDS SUMMARY | 2024-09-18 15:19 | XMS_ITS | Encounter Summary ---
Author Organization [facility] Address [facility] [place] [address] Care Team Providers Care Lockstitch Tunnel Elastic Operator Name Role Phone Juju Sofia NP Primary Care Provider [phone] Reason for Visit * Reason Comments EMG Testing LUE- * Procedure (Routine) - Closed Specialty Diagnoses / Procedures Referred By Annette stanford Referred To Contact NEUROLOGY Diagnoses Cubital tunnel syndrome on left Carpal tunnel syndrome of left wrist Procedures [facility] ([facility]) Juju Sofia NP [address] [place] [address] Phone: tel: fax: [facility] - [address], [address] [place] [address] Phone: tel: Referral ID Status Reason Start Date Expiration Date V isits Requested Visits Authorized [id number] Closed Office Procedure 06/28/2024 06/28/2025 1 1 Encounter Details Date Type Department Care Team (Latest Contact Info) Description 09/18/2024 9:00 AM CDT Office Visit [address], [address] [place] [address] Juju Sofia NP [address] [place] [address] Yayo Gutierrez MD [address] [place] [address] EMG Testing (LUE-) Social History Tobacco Use Types Packs/Day Years [...] on file Legal Sex Female 2:40 PM ADVERTISING COPY WRITER Gender Identity Not on file Sexual Orientation Not on file documented as of this encounter Plan of Treatment Not on file documented as of this encounter Visit Diagnoses Diagnosis Cubital tunnel syndrome on left Lesion of ulnar nerve Carpal tunnel syndrome of left wrist Carpal tunnel syndrome documented in this encounter Additional Health Concerns Assessment Noted Time PHQ-9 Depression Total Score: 26 025 12:44 PM ADVERTISING COPY WRITER documented as of this encounter Care Teams Lockstitch Tunnel Elastic Operator Relationship Specialty Start Date End Date Juju Sofia NP [address] [place] [address] PCP - General NURSE PRACTITIONER 12/05/20 documented as of this encounter
--- OUTSIDE RECORDS SUMMARY | 2024-09-18 15:19 | XMS_ITS | Encounter Summary ---
Author Organization [facility] Address [address] [place] [address] Care Team Providers Care Barley Steeper Name Role Phone Juju Sofia NP Primary Care Provider [phone] Encounter Details Date Type Department Care Team (Latest Contact Info) Description 02/16/2024 [employer] Message Enc [facility] Orthopedic & Sports [facility] - [place] [address] [place] [address] [phone] Benito Kyle NP [address] [place] [address] [phone] Phone call requesting additional work time modification Social History Tobacco Use Types Packs/Day Years [...] on file Legal Sex Female 2:40 PM LAUNDRY AID Gender Identity Not on file Sexual Orientation Not on file documented as of this encounter Plan of Treatment Not on file documented as of this encounter Visit Diagnoses Not on filedocumented in this encounter Additional Health Concerns Assessment Noted Time PHQ-9 Depression Total Score: 8 12/06/19 21 12:12 PM CDT documented as of this encounter Care Teams Barley Steeper Relationship Specialty Start Date End Date Juju Sofia NP [address] [place], [place] [address] PCP - General NURSE PRACTITIONER 12/05/20 documented as of this encounter
--- OUTSIDE RECORDS SUMMARY | 2024-09-18 15:19 | XMS_ITS | Clinical Summary ---
Author Organization [facility] Address [address] [place] [address] Phone Care Team Providers Care Upfitter Name Role Phone Juju Sofia APRN, CARTRIDGE BELT PUNCHER Primary Care Provid er Gildardo Duron DO Unavailable [phone] Allergies Active Allergy Reactions Criticality Noted Date Comments Sulfa Antibiotics Rash,Other (see Comments) Medium Medications ALPRAZolam (XANAX) 0.25 MG Tablet 01/13/2021 Active Blood Glucose Monitoring Suppl (ONE TOUCH ULTRA 2) w/Device Kit Check blood sugar PRN when feeling dizzy, lightheaded, and clammy. 02/12/2021 Active Glucose Blood Strip 1 Strip by Other route. 02/12/2021 Active ONE TOUCH ULTRASOFT LANCETS Misc 1 Each by Other route. 02/12/2021 Active citalopram (CeleXA) 10 MG Tablet Take 10 mg by mouth daily. Active Family History Medical History Relation Name Comments Diabetes Father Heart Disease Father Cancer Maternal Aunt leukemia Cancer Mother bladder Heart Disease Mother Relation Name Status Comments Father Maternal Aunt Mother Alive Social History Tobacco Use Types Packs/Day Years Used Date Smoking Tobacco: Never Smokeless Tobacco: Never PHQ-2 Answer Date Recorded Total Score - Questions 1-9 0 05/07 Comments Unknown Sex and Gender Information Value Date Recorded Sex Assigned at Not on file Legal Sex Female 1:51 PM CDT Gender Identity Not on file Sexual Orientation Not on file Last Filed Vital Signs Vital Sign Reading Time Taken Comments Blood Pressure 112/70 06/01/2021 2:43 PM COSMETICIAN Pulse 75 06/01/2021 2:43 PM COSMETICIAN Temperature 36 C (96.8 F) 06/01/2021 2:43 PM COSMETICIAN Respiratory Rate 18 06/01/2021 2:43 PM COSMETICIAN Oxygen Saturation 97% 06/01/2021 2:43 PM COSMETICIAN Inhaled Oxygen Concentration - - Weight 60.3 kg (133 lb) 06/01/2021 2:43 PM COSMETICIAN Height 160 cm (5' 3 ) 06/01/2021 2:43 PM COSMETICIAN Body Mass Index 23.56 06/01/2021 2:43 PM COSMETICIAN Plan of Treatment Health Maintenance Due Date Last Done Comments TdaP Immunization 1972 Hepatitis B Immunization (1 of 3 - 19+ 3-dose series) 1991 Colonoscopy 2017 Colorectal Cancer Screening 2017 Cologuard 2022 Immunochemical Fecal Occult Blood 2022 Pneumococcal Immunization (5 0+ years) (1 of 1 - PCV) 2022 Zoster Immunization (1 of 2) 2022 Influenza Immunization (#1) 2024 SARS-COV-2 Immunization (3 - 2023- season) 2024 04/24/2021, 02/18/2021 Respiratory Syncytial Virus (RSV) Immunization (Adult) (1 - 1-dose 75+ series) 2047 Hepatitis C Virus (HCV) Screening Completed 12/12/2020 Meningococcal Immunization (ACWY) Aged Out No longer eligible b ased on patient's age to complete this topic Rotavirus Immunization Aged Out No lo nger eligible based on patient's age to complete this topic Insurance [facility] Care Teams Upfitter Relationship Specialty Start Date End Date Juju Sofia APRN, CARTRIDGE BELT PUNCHER [address] [place], [place] [phone] PCP - General Advanced Practice Nurse 12/30/20 Gildardo Duron DO [address] [place] [phone] Consulting Physician Oncology 12/30/20
--- OUTSIDE RECORDS SUMMARY | 2024-09-18 15:19 | XMS_ITS | Encounter Summary ---
Author Organization [facility] Address [address] [place] [address] Care Team Providers Care Events Traffic Controller Name Role Phone Juju Sofia MANAGER CULINARY Primary Care Provider [phone] Encounter Details Date Type Department Care Team (Latest Contact Info) Description 09/18/2024 Travel Social History Tobacco Use Types Packs/Day Years [...] on file Legal Sex Female 2:40 PM MARKETING UNDERWRITER Gender Identity Not on file Sexual Orientation Not on file documented as of this encounter Plan of Treatment Not on file documented as of this encounter Visit Diagnoses Not on filedocumented in this encounter Additional Health Concerns Assessment Noted Time PHQ-9 Depression Total Score: 26 025 12:44 PM MARKETING UNDERWRITER documented as of this encounter Care Teams Events Traffic Controller Relationship Specialty Start Date End Date Juju Sofia NP [address] [place] [address] PCP - General NURSE PRACTITIONER 12/05/20 documented as of this encounter
--- OUTSIDE RECORDS SUMMARY | 2024-09-18 15:19 | XMS_ITS | Encounter Summary ---
Author Organization [facility] Address [address] [place] [address] Phone Care Team Providers Care Income Tax Administrator Name Role Phone Juju Sofia APRN, CNP Primary Care Provid er Gildardo Duron DO Unavailable [phone] Encounter Details Date Type Department Care Team (Late st Contact Info) Description 04/22/2021 Telephone [facility] [address] [place] [address] Gildardo Duron, DO [address] [place] [address] Social History Tobacco Use Types [...] * Telephone Encounter - Geeta Callaway - 04/22/2021 9:11 AM CST Patient had to reschedule because she had been exposed to Covid 19. New appt is scheduled for 05/04. MIXER documented in this encounter Plan of Treatment Not on file documented as of this encounter Visit Diagnoses Not on filedocumented in this encounter Additional Health Concerns Assessment Noted Time PHQ-9 Depression Total Score: 1 02/18/20 21 10:26 AM CDT documented as of this encounter Care Teams Income Tax Administrator Relationship Specialty Start Date End Date Juju Sofia APRN, VET TECH [address] [place] [address] PCP - General Advanced Practice Nurse 12/30/20 Gildardo Duron DO [address] [place] [phone] Consulting Physician Oncology 12/30/20 documented as of this encounter
== END 2024-09-18 14:02 | disposition home or self-care (01) ==
PROVIDERS: PCP Nurse Practitioner; Visit Provider Nurse Practitioner
DX: R10.32 Left lower quadrant pain (principal)
CPT/HCPCS: 74177; Q9967

== ENCOUNTER 2024-10-10 13:39 | Outpatient (CLI) | payer OTHER, SELFPAY ==
--- NOTE | ~2024-10-10 | MM_ITS ---
EXAMINATION: MM screening bethanie BI w terry HISTORY: Screening TECHNIQUE: Craniocaudal and mediolateral oblique 3-D tomosynthesis images were obtained and synthetic 2-D images were generated. CAD analysis was submitted and interpreted. COMPARISON: Comparison to multiple prior studies sequentially, with oldest reviewed study dated 05/07. BREAST PARENCHYMAL COMPOSITION: Dense: The breasts are heterogeneously dense, which may obscure small masses FINDINGS: There is no evidence of suspicious mass, calcification, or architectural distortion to sugg est malignancy in either breast. There has been no suspicious interval change. IMPRESSION: 1. No mammographic evidence of malignancy. 2. Recommend routine screening mammography in one year. BI-RADS Category 1: Negative Reviewed, dictated and finalized at location A.
== END 2024-10-10 13:40 | disposition home or self-care (01) ==
LOC: MICIMG 13:40
PROVIDERS: PCP Nurse Practitioner; Visit Provider Nurse Practitioner
DX: Z12.31 Encounter for screening mammogram for malignant neoplasm of breast (principal)
CPT/HCPCS: 77063; 77067

== ENCOUNTER 2024-10-31 00:19 | Day surgery (SDC) | payer OTHER, SELFPAY ==
[2024-10-19 14:25] VITALS: BMI 23.4
--- OUTSIDE RECORDS SUMMARY | 2024-10-31 00:21 | XMS_ITS | Encounter Summary ---
Author Organization [facility] Address [address] [place] [address] Phone Care Team Providers Care Mobility Engineer Name Role Phone Juju Sofia APRN, CNP Primary Care Provid er Gildardo Duron DO Unavailable [phone] Encounter Details Date Type Department Care Team (Late st Contact Info) Description 05/05/2021 Telephone [facility] [address] [place] [address] Gildardo Duron, DO [address] [place] [address] Social History Tobacco Use Types [...] LEFT VM CONCERNING NS APPT. LETTER SENT ORK CABLER documented in this encounter Plan of Treatment Not on file documented as of this encounter Visit Diagnoses Not on filedocumented in this encounter Additional Health Concerns Assessment Noted Time PHQ-9 Depression Total Score: 1 09/14/20 21 10:26 AM CDT documented as of this encounter Care Teams Mobility Engineer Relationship Specialty Start Date End Date Juju Sofia APRN, PRINTER ASSISTANT [address] [place] [address] PCP - General Advanced Practice Nurse 12/30/20 Gildardo Duron DO [address] [place] [phone] Consulting Physician Oncology 12/30/20 documented as of this encounter
--- OUTSIDE RECORDS SUMMARY | 2024-10-31 00:21 | XMS_ITS | Encounter Summary ---
Author Organization [facility] Address [address] [place] [address] Phone Care Team Providers Care Boiling House Hand Name Role Phone Juju Sofia APRN, CNP Primary Care Provid er Gildardo Duron DO Unavailable [phone] Encounter Details Date Type Department Care Team (Late st Contact Info) Description 04/22/2021 Telephone [facility] [address] [place] [address] Gildardo Duron, DO [address] [place] [address] Social History Tobacco Use Types [...] 19. New appt is scheduled for 05/04. EXPELLER OPERATOR documented in this encounter Plan of Treatment Not on file documented as of this encounter Visit Diagnoses Not on filedocumented in this encounter Additional Health Concerns Assessment Noted Time PHQ-9 Depression Total Score: 1 02/18/20 21 10:26 AM CDT documented as of this encounter Care Teams Boiling House Hand Relationship Specialty Start Date End Date Juju Sofia APRN, HYPERION DEVELOPER [address] [place] [address] PCP - General Advanced Practice Nurse 12/30/20 Gildardo Duron DO [address] [place] [phone] Consulting Physician Oncology 12/30/20 documented as of this encounter
--- OUTSIDE RECORDS SUMMARY | 2024-10-31 00:21 | XMS_ITS | Clinical Summary ---
Author Organization [facility] Address [address] [place] [address] Phone Care Team Providers Care Farmworker Turkey Farm Name Role Phone Juju Sofia APN Primary [...] on file Legal Sex Female 9:47 AM SENIOR DATA WAREHOUSE ARCHITECT Gender Identity Not on file Sexual Orientation Not on file Last Filed Vital Signs Vital Sign Reading Time Taken Comments Blood Pressure 126/58 05/02/2021 12:29 PM SENIOR DATA WAREHOUSE ARCHITECT Pulse 73 05/02/2021 12:29 PM SENIOR DATA WAREHOUSE ARCHITECT Temperature 36.7 C (98.1 F) 05/02/2021 12:29 PM SENIOR DATA WAREHOUSE ARCHITECT Respiratory Rate 18 05/02/2021 12:29 PM SENIOR DATA WAREHOUSE ARCHITECT Oxygen Saturation 100% 05/02/2021 12:29 PM SENIOR DATA WAREHOUSE ARCHITECT Inhaled Oxygen Concentration - - Weight 59.7 kg (131 lb 9.6 oz) 05/01/2021 3:22 P M SENIOR DATA WAREHOUSE ARCHITECT Height 160 cm (5' 3) 05/01/2021 3:22 PM SENIOR DATA WAREHOUSE ARCHITECT Body Mass Index 23.31 05/01/2021 3:22 PM SENIOR DATA WAREHOUSE ARCHITECT Plan of Treatment Health Maintenance Due Date [...] Indicated R/O C. diff 05/01/2021 05/01/2021 Insurance Advance Directives For more information, please contact: [phone] * Full Code (Latest Code Status on File) Date Activated Date Inactivated Comments 05/01/2021 3:27 PM 05/02/2021 5:37 PM Care Teams Farmworker [employer] Relationship Specialty Start Date End Date Juju Sofia APN PCP - General NURSE PRACTITIONER 05/01/21
--- OUTSIDE RECORDS SUMMARY | 2024-10-31 00:21 | XMS_ITS | Clinical Summary ---
Author Organization [facility] Address [address] [place] [address] Care Team Providers Care Linux Network Systems Administrator Name Role Phone Juju Sofia APRN-[facility] Primary Care Provi casey Source Comments [facility],non-owned Affiliates and Associated Physician Practices is amultiple site organization consisting of ambulatory clinics and hospital sitesin [place], [place], [place] and [place]. This disclosure is being madepursuant to the Care Everywhere program and may not contain all information available regarding this patient. Last updated 18.[facility] Allergies Active Allergy Reactions Criticality Noted Date Comments Sulfa Drugs Urticaria Medium 06/20/2019 Medications * Be aware that medications may not be up to date on this document. Alwaysverify current medications with the patient. benzonatate (TESSALON) 200 MG capsule Take 1 capsule by mouth 3 times daily as needed for Cough 30 capsule 06/20/2019 Active Encounters Date Type Department Care Team Description 09/20/2024 Travel 09/17/2024 Orders Only [facility] - Orth[facility] Surgery [address] [place] [id number] Adama Malik MD Pain of left hand ; Carpal tunnel syndrome of left wrist from Last 3 Months Social History Tobacco Use Types Packs/Day Years Used Date Smoking Tobacco: Never Smokeless Tobacco: Never Comments No Sex and Gender Information Value Date Recorded Sex Assigned at Not on file Legal Sex Female 5:43 AM STOCK TURNER Gender Identity Not on file Sexual Orientation Not on file Last Filed Vital Signs Vital Sign Reading Time Taken Comments Blood Pressure 126/80 06/20/2019 9:00 AM STOCK TURNER Pulse 84 06/20/2019 9:00 AM STOCK TURNER Temperature 37.1 C (98.8 F) 06/20/2019 9:00 AM STOCK TURNER Respiratory Rate 16 06/20/2019 9:00 AM STOCK TURNER Oxygen Saturation 99% 06/20/2019 9:00 AM STOCK TURNER Inhaled Oxygen Concentration - - Weight 65.8 kg (145 lb) 06/20/2019 9:00 AM STOCK TURNER Height 160 cm (5' 3) 06/20/2019 9:00 AM STOCK TURNER Body Mass Index 25.69 06/20/2019 9:00 AM STOCK TURNER Plan of Treatment Health Maintenance Due Date [...] of 3 - 19+ 3-dose series) 1991 PNEUMOCOCCAL VACCINE 50+ (1 of 1 - [...] patient's age to complete this topic Insurance [facility] Address: [address] [address] Care Teams Linux Network Systems Administrator Relationship Specialty Start Date End Date Juju Sofia, RIBBON WINDER-BUSINESS PROCESS ANALYST [address] [place] [address] PCP - General 08/17/22
--- OUTSIDE RECORDS SUMMARY | 2024-10-31 00:21 | XMS_ITS | Continuity of Care Document ---
Author Organization [facility] Address [address] [place] [address] Phone Care Team Providers Care Manager Of Applications Development Name Role Phone Yomaira Hardin OT Unavailable Unavailable Procedures Procedure Date Identified as not an unhealthy alcohol u ser Not identified as unhealthy alcohol via screening OT Re-Evaluation Therapeutic Activities Neuromuscular Re-Ed Therapeutic Exercise Hot or Cold Pack Therapeutic Activities Therapeutic Exercise Manual Therapy Hot or Cold Pack Therapeutic Activities Therapeutic Exercise Manual Therapy Hot or Cold Pack Therapeutic Activities Therapeutic Exercise Manual Therapy Hot or Cold Pack Progress Note Therapeutic Activities Therapeutic Exercise Manual Therapy Hot or Cold Pack Therapeutic Activities Neuromuscular Re-Ed Therapeutic Exercise Hot or Cold Pack Therapeutic Activities Neuromuscular Re-Ed Manual Therapy Hot or Cold Pack Therapeutic Activities Neuromuscular Re-Ed Hot or Cold Pack Therapeutic Activities Neuromuscular Re-Ed Manual Therapy Hot or Cold Pack Therapeutic Activities Neuromuscular Re-Ed Manual Therapy Hot or Cold Pack Therapeutic Activities Neuromuscular Re-Ed Manual Therapy Hot or Cold Pack Identified as not an unhealthy alcohol u ser Not identified as unhealthy alcohol via screening OT Evaluation Low Complexity Therapeutic Activities Manual Therapy Hot or Cold Pack Advance Directives Directive Yes / No Effective Date File Name No Information Encounters Encounter Description Practice Location Reason(s) For Visit Diagnoses Date Provider Providers Copied on Encounter [facility], [id number], tel:[phone] [place] No Information 4 Hardin Yomaira. . [facility] [place] [address], [id number], tel:[phone] [place] No Information Feb- 4 Hardin Yomaira. . Referring Provider: Francois Ellis, [place], [address]. tel:[phone] [facility] [address] [place] [address], [id number], tel:[phone] [place] No Information Sep-2 4 Wilfred Floresyenne. . Referring Provider: [place], [address]. tel:[phone] [facility], [place], [id number], tel:[phone] [place] No Information Feb- 4 Wilfred Floresyenne. . Referring Provider: [place], [address]. tel:[phone] [facility], [place], [place], [id number], [place] tel:[phone] [place] No Information Sep-1 6 4 Hardin Yomaira. . Referring Provider: Benito Santiago, [address], [place], [address]. tel:[phone] [facility], [place], [place], [id number], [place] tel:[phone] [place] No Information Sep-1 4 Hardin Yomaira. . Referring Provider: Benito Santiago, [address], [place], [address]. tel:[phone] [facility] [address] [facility], [place], [place], [id number], [place] tel:[phone] [place] No Information Sep-1 0-202 4 Hardin Yomaira. . Referring Provider: Benito Santiago, [address], [place], [address]. tel:[phone] [facility], [place], [place], [id number], [place] tel:[phone] [place] No Information Sep-0 6 4 Hardin Yomaira. . Referring Provider: Benito Santiago, [address], [place], [address]. tel:[phone] [facility], [place], [place], [id number], [place] tel:[phone] [place] No Information Sep-0 3 4 Hardin Yomaira. . Referring Provider: Benito Santiago, [address], [place], [address]. tel:[phone] [facility], [place], [place], [id number], [place] tel:[phone] [place] No Information 4 Hardin Yomaira. . Referring Provider: Benito Santaigo, [address], [place], [address]. tel:[phone] [facility] [address] [facility], [place], [place], [id number], tel:[phone] [place] No Information 4 Hardin Yomaira. . Referring Provider: Benito Santiago, [address], [place], [address]. tel:[phone] [place] [address] [facility] [facility], [place], [place], [id number], [phone] [place] No Information 4 Hardin Yomaira. . Referring Provider: Benito Santiago, [address], [place], [address]. tel:[phone] [facility] [address], [place], [place], [id number], tel:[phone] [place] No Information 4 Hardin Yomaira. . Referring Provider: Benito Santiago, [address], [place], [address]. tel:[phone] Family History Family Member Type Diagnosis Age At Onset No Information Payers Payer name Insurance type Covered republican ID Chetan cueto(s) R CI [id number] Social History Type Description Quantity Date Captured Comments Sex Female Smoking Status No Information Chief Complaint And Reason For Visit No Information Reason For Referral Reason For Referral No Information History Of Present Illness Encounter Date Complaint History Of Prese nt Illness No Information Functional Status Date Functional Assessmen t No Information Instructions Date Instruction Additional Infor mation No Information Assessments Type Assessment Date No Information Patient Care Teams Name Effective Dates (start - stop) Status Members No Information
--- OUTSIDE RECORDS SUMMARY | 2024-10-31 00:21 | XMS_ITS | Clinical Summary ---
Author Organization [facility] Address [address] [place] [address] Phone Care Team Providers Care Surveyor Helper Rod Name Role Phone Juju Sofia APRN, RHEUMATOLOGY SPECIALIST Primary Care Provid er Gildardo Duron DO Unavailable [phone] Allergies Active Allergy Reactions Criticality Noted [...] Comments Blood Pressure 112/70 06/01/2021 2:43 PM PRODUCTION SUPV Pulse 75 06/01/2021 2:43 PM PRODUCTION SUPV Temperature 36 C (96.8 F) 06/01/2021 2:43 PM PRODUCTION SUPV Respiratory Rate 18 06/01/2021 2:43 PM PRODUCTION SUPV Oxygen Saturation 97% 06/01/2021 2:43 PM PRODUCTION SUPV Inhaled Oxygen Concentration - - Weight 60.3 kg (133 lb) 06/01/2021 2:43 PM PRODUCTION SUPV Height 160 cm (5' 3) 06/01/2021 2:43 PM PRODUCTION SUPV Body Mass Index 23.56 06/01/2021 2:43 PM PRODUCTION SUPV Plan of Treatment Health Maintenance Due Date [...] patient's age to complete this topic Insurance [facility] Care Teams Surveyor Helper Rod Relationship Specialty Start Date End Date Juju Sofia APRN, RHEUMATOLOGY SPECIALIST [address] [place], [place] [id number] PCP - General Advanced Practice Nurse 12/30/20 Gildardo Duron DO [address] [place] [phone] Consulting Physician Oncology 12/30/20
[2024-10-31 10:13] LABS: BEDSIDEPREGUCG Negative (Negative)
[2024-10-31] MEDS: LACTATED RINGERS 1,000 ML 150 ML IV CONT (10:22)
[2024-10-31 10:23] VITALS: BP 105/49; PULSE 82; RESP 20; TEMP 36.6; O2SAT 100
--- NOTE | 2024-10-31 10:32 | P.PNAN_ITS ---
Anes - Initial Pre Proc Eval Procedure: Operation Date: 10/31/24 14:00 Proposed Procedures p Colonoscopy - Damian Marlow MD Date/Time: 10/31/24 10:32 Surgeon: Damian Marlow MD Pre Op Diagnosis: Diarrhea, Unspecified abdominal pain Patient Data Age: 54 Gender: F Height: 1.6 m Weight: 59.8 kg Last Vital Signs Temp 97.8 F 10/31/24 10:23 Pulse 82 10/31/24 10:23 Resp 20 10/31/24 10:23 BP 105/49 L 10/31/24 10:23 Pulse Ox 100 10/31/24 10:23 O2 Del Method Room Air 10/31/24 10:23 Allergies Allergy/AdvReac Type Severity Reaction Status Date / Time Sulfa (Sulfonamide Allergy Severe Difficulty Verified 10/31/24 10:05 Antibiotics) Breathing Home Medications ?Medication ?Instructions ?Recorded ?Confirmed ?Type citalopram 10 mg tablet 10 mg PO DAILY 06/22/22 10/31/24 History Lactobacillus 1 cap PO DAILY 07/22/22 10/31/24 History acidophilus-Bifidobac.animalis 2.5 billion cell capsule (Daily Probiotic) cholecalciferol (vitamin D3) 1,250 1,250 mcg PO DAILY 10/19/24 10/31/24 History mcg (50,000 unit) capsule Laboratory Tests 10/31/24 10:11 POC Urine HCG, Qual Negative (Negative) Patient hx anesthesia problems: none Family hx anesthesia problems: none Results Review: All pre-operative results and documents have been reviewed as part of the pre- operative evaluation. [facility] Past Medical History Medical History Abdominal pain Anxiety Change in bowel habits Diverticulitis of intestine with abscess Nausea Surgical History Surgical History H/O hysterectomy with unilateral oophorectomy History of section S/P laparoscopic cholecystectomy 08/02/22 Social History Social History (Updated 12/02/22 @ 15:56 by Courtney Jose CMA) Smoking status: Never smoker Alcohol intake: former Substance use: current Substance use type: marijuana Other substance usage details: cbd gummies Last use: 01/22/21 Lack of Transportation: No Lack of Food: Never True Current Housing: I Have Housing Concerned About Future Housing: No Difficulty Paying Gas/Electric Bills: No Difficulty Paying for Meds: No Currently Unemployed: YES Education: High School Diploma/GED Difficulty w/ Childcare or Family Care: No Living arrangements: alone Gender identity (if verbalized by the patient): Female Spiritual care concerns: No Anes - Eval Final PreProcedure Day of Procedure 10/31/24 10:32 Patient weight: normal Heart: regular rate and rhythm Lungs: clear to auscultation Airway: Mallampati scale class II Neurological: alert and oriented Last oral intake: >/= 8 hours ASA classification: II Emergent: no Anesthetic plan: proceed Anesthesia type and monitoring: general GIVS and standard monitoring Results Review: All pre-operative results and documents have been reviewed as part of the pre- operative evaluation. Informed Consent: The patient's anesthetic plan and its attendant risks and benefits were discussed with the patient/family/POA. Questions were solicited and answers provided to the satisfaction of the patient/family/POA.
--- NOTE | 2024-10-31 10:44 | PM.HPGS ---
History of Present Illness History of Present Illness Consent: Risks, benefits, and alternatives have been discussed and questions answered. Patient agrees to proceed with procedure. Chief complaint: colon screen Narrative: Coco Wing is a 54 year old female here for screening colonoscopy, last one 2020 Review of Systems Review of Systems: All systems reviewed & are unremarkable except as noted in HPI and below PMFSH Past Medical History Medical History (Updated 10/31/24 @ 10:45 by Damian Marlow MD) Colon cancer screening Change in bowel habits Nausea Abdominal pain Diverticulitis of intestine with abscess Anxiety Surgical History Surgical History S/P laparoscopic cholecystectomy 08/02/22 History of section H/O hysterectomy with unilateral oophorectomy Social History Social History (Updated 12/02/22 @ 15:56 by Courtney Jose CMA) Smoking status: Never smoker Alcohol intake: former Substance use: current Substance use type: marijuana Other substance usage details: cbd gummies Last use: 01/22/21 Lack of Transportation: No Lack of Food: Never True Current Housing: I Have Housing Concerned About Future Housing: No Difficulty Paying Gas/Electric Bills: No Difficulty Paying for Meds: No Currently Unemployed: YES Education: High School Diploma/GED Difficulty w/ Childcare or Family Care: No Living arrangements: alone Gender identity (if verbalized by the patient): Female Spiritual care concerns: No Meds Home Medications and Allergies Home Medications ?Medication ?Instructions ?Recorded ?Confirmed ?Type citalopram 10 mg tablet 10 mg PO DAILY 06/22/22 10/31/24 History Lactobacillus 1 cap PO DAILY 07/22/22 10/31/24 History acidophilus-Bifidobac.animalis 2.5 billion cell capsule (Daily Probiotic) cholecalciferol (vitamin D3) 1,250 1,250 mcg PO DAILY 10/19/24 10/31/24 History mcg (50,000 unit) capsule Allergies Allergy/AdvReac Type Severity Reaction Status Date / Time Sulfa (Sulfonamide Allergy Severe Difficulty Verified 10/31/24 10:05 Antibiotics) Breathing Vital Signs Vital Signs - 24 hr 10/31/24 10:23 Temperature 97.8 F Pulse Rate 82 Respiratory Rate 20 Blood Pressure 105/49 L Pulse Oximetry 100 Oxygen Delivery Room Air Exam Const: General: comfortable and no acute distress HENMT: Face/Nose/Sinus: Normal nares present Eyes: General: appearance normal, both eyes and all related structures Neck: Neck: no JVD Resp: Auscultation: clear to auscultation bilaterally Cardio: Rate: regular rate Rhythm: regular rhythm GI: Inspection: non-distended GI Palp: Yes Soft to palpation Skin: General skin exam: normal color Neuro: General: gait normal Speech: normal speech Extrem: General: normal to inspection Psych: Mental Status: mental status grossly normal Assessment and Plan Assessment and plan (1) Colon cancer screening: Code(s): Z12.11 - Encounter for screening for malignant neoplasm of colon Status: Acute Assessment and Plan: colonoscopy
[2024-10-31 11:02] VITALS: BP 89/51; PULSE 58; RESP 28; O2SAT 100
--- NOTE | 2024-10-31 11:02 | S_PTH ---
PATIENT: oCco Wing LOC: [facility]#:[id number] AGE/SX: 54/F ROOM: RE10/31/[address]: Damian Marlow MD : 1970 BED: DIS: 10/31/2024 SPEC #: [id number] RECD: 10/31/24 13:08 STATUS: SHAHLA REAguila #: [id number] VILMA: 10/31/24 11:[address]: Damian Marlow DEPT: [facility] Surgical RECD BY: Eliane Puente ENTERED: 10/31/24 13:08 SP TYPE: Surgical OTHR DR: Juju Sofia, NEWS REEL CAMERAMAN Tissues: A - Colon Polypectomy B - Colon Polypectomy Procedures: Hematoxylin and Eosin Stain Gross and Microscopic Level 4
[2024-10-31 11:12] VITALS: BP 105/71; PULSE 61; RESP 16; O2SAT 100
[2024-10-31 11:22] VITALS: BP 114/69; PULSE 68; RESP 17; O2SAT 100
--- NOTE | 2024-10-31 11:38 | SUR.PHASEII ---
1125-Pt waiting on ride.
== END 2024-10-31 11:35 | disposition home or self-care (01) ==
PROVIDERS: Anesthesiology; PCP Nurse Practitioner; Referring Provider Obstetrics & Gynecology; Visit Provider Internal Medicine Gastroenterology
PROC: 0DJD8ZZ Inspection of Lower Intestinal Tract, Via Natural or Artificial Opening Endoscopic (ICD-10-PCS; CPT 45378; principal; 2024-10-31 14:00)
DX: Z12.11 Encounter for screening for malignant neoplasm of colon (principal); D12.3 Benign neoplasm of transverse colon; K63.5 Polyp of colon; K57.30 Diverticulosis of large intestine without perforation or abscess without bleeding; K64.8 Other hemorrhoids
CPT/HCPCS: 45385; 88305; J2003; J2704; J7120